=== PATIENT | male | born 1945 | race Caucasian/White ===

== ENCOUNTER 2021-12-04 12:37 | Outpatient (CLI) | payer MEDICARE, SELFPAY ==
--- NOTE | ~2021-12-04 | US_ITS ---
EXAMINATION: US carotid duplex BI DATE: 12/04/2021 13:43 INDICATION: Carotid artery stenosis TECHNIQUE: Grayscale, color Doppler, and pulsed Doppler images of the cervical carotid arteries were obtained. The degree of vessel stenosis is placed in one of the following categories: normal, <50%, 5 0-69%, >=70% but less than near-occlusion, near-occlusion, or total occlusion. Note that percent sten osis relative to normal distal artery lumen diameter is indirectly measured from velocity measurement s as described by Joe, et al. Radiology 2003; 229:340-346. COMPARISON: None. FINDINGS: RIGHT: The right common carotid artery (CCA) peak systolic velocity (PSV) is 97 cm/s. The right internal car otid artery (ICA) PSV is 78 cm/s. The right ICA end-diastolic velocity (EDV) is 22 cm/s. The right IC A/CCA PSV ratio is 0.81. Grayscale and color Doppler images yield an estimate of less than 50% diamet er reduction from plaque in the ICA. The external carotid artery (ECA) PSV is 154 cm/s. There is ante grade flow in the right vertebral artery. LEFT: The left CCA PSV is 69 cm/s. The left ICA PSV is 114 cm/s. The left ICA EDV is 28 cm/s. The left ICA/ CCA PSV ratio is 1.6. Grayscale and color Doppler images yield an estimate of less than 50% diameter reduction from plaque in the ICA. The ECA PSV is 35 cm/s. There is antegrade flow in the left vertebr al artery. IMPRESSION: 1. <50% stenosis in the right internal carotid artery. 2. <50% stenosis in the left internal carotid artery. Reviewed, dictated and finalized at location A.
== END 2021-12-04 12:38 | disposition home or self-care (01) ==
PROVIDERS: Visit Provider Internal Medicine Cardiovascular Disease
DX: I77.9 Disorder of arteries and arterioles, unspecified (principal); I65.23 Occlusion and stenosis of bilateral carotid arteries
CPT/HCPCS: 93880

== ENCOUNTER 2022-01-24 13:46 | Outpatient (CLI) | payer MEDICARE, SELFPAY ==
--- NOTE | ~2022-01-24 | US_ITS ---
EXAMINATION: US art doppler w press LE BI DATE: 01/25/2022 12:39 CDT INDICATION: Medication TECHNIQUE: Segmental pressures and plethysmographic and Doppler waveforms of the brachial and lower e xtremity arteries were obtained. COMPARISON: None. FINDINGS: Right and left brachial artery pressures of 170 mm Hg and 187 mm Hg, respectively, are concordant (no rmal difference <= 30 mmHg). The right high-thigh pressure index is 1.09 (normal > 1.2). The right ankle-brachial index (ANTOINE) is 0 .78 (normal >= 0.9-1.0). The right great toe-brachial index (TBI) is 0.46 (normal >= 0.60). The right lower extremity segmental pressure gradients are diminished below the right knee. (normal gradients <= 20-30 mmHg between adjacent levels on the same leg or the same levels on the two legs). Arterial D oppler waveforms are biphasic. The left high-thigh pressure index is 1.09. The left ANTOINE is 0.71. The left TBI is 0.44. The left lowe r extremity segmental pressure gradients are increased below the left thigh. Arterial Doppler wavefor ms are biphasic. IMPRESSION: 1. Mild-moderate bilateral lower extremity arterial occlusive disease. Reviewed, dictated and finalized at location A.
== END 2022-01-24 13:47 | disposition home or self-care (01) ==
PROVIDERS: PCP Family Medicine; Visit Provider Internal Medicine Cardiovascular Disease
DX: I70.203 Unspecified atherosclerosis of native arteries of extremities, bilateral legs (principal)
CPT/HCPCS: 93923

== ENCOUNTER 2025-04-12 14:29 | Emergency (ER) | payer MEDICARE, SELFPAY ==
[2025-04-12 14:32] VITALS: BP 155/93; PULSE 101; RESP 20; TEMP 36.4; O2SAT 94
--- NOTE | 2025-04-12 14:39 | ED.GENADULT ---
HPI - General Adult General Stated complaint: left foot toe pain Source: patient Mode of arrival: ambulatory Limitations: no limitations History of Present Illness HPI narrative: 79 y/o male with hx dementia, CAD, DM, CVA presented for 2 concerns. Pt c/o left great toe pain, first reported today, and cough x1 week. HPI is obtained from son. Denies any known injury to the left foot. Pt ambulates with a walker, but only occasionally. Denies swelling, bruising, erythema, or wounds. 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 Son says he has history of pneumonia. Denies chest pain, increase in fatigue from baseline, n/v/d/f/c. Related Data Home Medications ?Medication ?Instructions ?Recorded ?Confirmed ?Last Taken ?Type donepezil 5 mg tablet 5 mg PO HS 01/08/24 11/25/24 11/04/24 21:00 History memantine 10 mg tablet 10 mg PO BID 01/08/24 11/25/24 11/05/24 10:05 History rivaroxaban 2.5 mg tablet 2.5 mg PO BID 01/08/24 11/25/24 11/05/24 10:05 History pravastatin 40 mg tablet 40 mg PO DAILY 11/05/24 11/25/24 11/05/24 10:05 History cilostazol 50 mg tablet 50 mg PO BID 11/25/24 11/25/24 Unknown History ezetimibe 10 mg tablet 10 mg PO DAILY 11/25/24 11/25/24 Unknown History amlodipine 10 mg tablet mg 04/12/25 Unknown History carbidopa 25 mg-levodopa 100 mg tablet 04/12/25 Unknown History tablet cetirizine 10 mg tablet mg 04/12/25 Unknown History duloxetine 60 mg capsule,delayed mg PO 04/12/25 Unknown History release losartan 100 mg tablet mg 04/12/25 Unknown History mirabegron 25 mg tablet,extended mg PO 04/12/25 Unknown History release 24 hr Allergies Allergy/AdvReac Type Severity Reaction Status Date / Time amoxicillin Allergy Unknown Unknown Verified 04/12/25 14:39 Edkklqv-GOV-MaP Reductase Allergy Other Verified 04/12/25 14:39 Inhibitor caffeine AdvReac Insomnia Verified 04/12/25 14:39 flu vaccine Allergy Unknown Uncoded 11/25/24 09:01 Review of Systems Review of Systems: CONSTITUTIONAL: Denies body aches, fever, chills, or sweats. EYES: Denies visual changes, redness, or discharge. ENT: Denies rhinorrhea, congestion, sore throat, or otalgia. CARDIOVASCULAR: Denies chest pain, palpitations, or edema. RESPIRATORY: Denies cough denies dyspnea. GASTROINTESTINAL: Denies abdominal pain, nausea, vomiting, or diarrhea. GENITOURINARY: Denies dysuria or hematuria. SKIN: Denies rash, itching, or wounds. MUSCULOSKELETAL: reports left foot pain denies back pain, joint pain, or myalgia. NEUROLOGIC: Denies numbness, tingling, or weakness. All systems reviewed & are unremarkable except as noted in HPI and below PMFSH Past Medical History Medical History Heart attack Arthritis Allergies Hyperlipidemia Constipation MDD (major depressive disorder) Dementia CAD (coronary artery disease) sp stenting Benign hypertension Type 2 diabetes mellitus without complications Surgical History Surgical History History of cervical spinal surgery Family History Family History Sibling Breast cancer Diabetes mellitus Father Heart disease Social History Social History Smoking status: Former smoker Alcohol intake: former Substance use: never Do You Feel Safe in your Home?: No Lack of Transportation: No Lack of Food: Never True Current Housing: I Have Housing Concerned About Future Housing: No Difficulty Paying Gas/Electric Bills: No Difficulty Paying for Meds: No Currently Unemployed: No Education: Bachelor's Degree Difficulty w/ Childcare or Family Care: No Spiritual care concerns: No Comments At time of signature, I have reviewed and agree with nursing past medical, surgical, social and family history unless otherwise noted. Please see nursing chart for further information. There is no relevant family history pertinent to the presenting complaint Exam Narrative: GENERAL: Well-appearing in no acute distress. ENT: Mucous membranes pink and moist. No rhinorrhea. CHEST: No respiratory distress. Clear to auscultation. HEART: Regular rate and rhythm. No murmur appreciated. Normal peripheral pulses. ABDOMEN: Soft, nontender, nondistended, normal active bowel sounds. EXTREMITIES: Normal range of motion. No edema. No wounds to feet. PPP and equal. No swelling, erythema bruising or wounds to feet. SKIN: Warm, dry, no rash. Capillary refill normal. Normal skin turgor. NEURO: No focal deficits. Alert and oriented x2. Son reports he confuses 'yes and no.' Gait steady. Course Course Emergency Course: Patient is aware of diagnosis, understands and agrees to treatment plan. Anticipatory guidance given. Patient agrees to follow-up as directed and is aware of reasons to seek care at the emergency department. Portions of this record may have been created with voice recognition software Level of Care: Express Care Visit Medical Decision Making MDM Narrative Medical decision making narrative: Discussed physical exam findings; offered CXR or left foot xray. Declined imaging. Son says he does not present like he does when he has pneumonia, he will continue to monitor Also has percocet for chronic pain, son will give for pain and if no improvement he has appt with pcp in 2 weeks. Foot without erythema bruising or swelling. No concern for gout or cellulitis. v/u. Advised supportive measures and signs/symptoms to go to the ER. Pt is appropriate for outpt treatment and f/u. Differential Diagnosis Differential Diagnosis: Plantar fasciitis, heel spur, foot strain/sprain, metatarsal fracture, metatarsalgia, cellulitis, gout, sprain, contusion, fracture bronchitis, pneumonia Vital Signs Vital Signs: reviewed Discharge Plan Discharge Clinical Impression: Acute pain of left foot, Cough Patient Disposition: Home Condition: Stable Instructions: Antibiotic Form, Pneumonia (ED) Additional Instructions: For the toe pain: Keep the foot up when at rest Mole skin to the bony areas that may rub on shoes Tylenol as needed You can apply pain cream such as icy hot or biofreeze Monitor the skin follow up with pcp You will continue to monitor for signs of pneumonia Pneumonia is a lung infection that can cause a fever, cough, and trouble breathing. How it spreads: When someone with bacterial pneumonia coughs, sneezes, or talks, they release respiratory droplets into the air that can be inhaled by others.?You can also get pneumonia by touching a contaminated surface or object and then touching your mouth or nose. You're generally contagious for around 48 hours after starting antibiotics and your fever goes away.? To prevent the spread of pneumonia, you can:? ? Get vaccinated? ? Wash your hands often with soap and water for 20 seconds? ? Cover your mouth with a tissue when you cough or sneeze? ? Avoid people who are already sick with pneumonia? ? Stay home when you have pneumonia eat small frequent meals. Get lots of rest and drink fluids. Alternate Tylenol and ibuprofen for pain/fever Alfj-wvu-gpcempl cough medication can cause drowsiness, take according to package directions If you have nasal congestion, you can take Zyrtec, Claritin along with Flonase spray Call your Primary Care Doctor and make a follow-up appointment in 3 days. Go to the ER for worsening symptoms or concerns Patient Language: Estonian Prescriptions: No Action ezetimibe 10 mg tablet 10 mg PO DAILY cilostazol 50 mg tablet 50 mg PO BID donepezil 5 mg Tablet 5 mg PO HS clopidogrel 75 mg Tablet 75 mg PO DAILY bupropion HCl 75 mg Tablet 75 mg PO BID memantine 10 mg Tablet 10 mg PO BID rivaroxaban 2.5 mg Tablet 2.5 mg PO BID duloxetine 30 mg capsule,delayed release(DR/EC) 30 mg PO DAILY pravastatin 40 mg tablet 40 mg PO DAILY oxycodone-acetaminophen 5-325 mg Tablet 1 tablet PO Q6H PRN (Reason: Pain Rated 4-6) Qty: 10 0RF Follow-up/Referrals: Harms,Erlin Mcguire M.D. [Primary Care Provider]
--- OUTSIDE RECORDS SUMMARY | 2025-04-12 17:23 | XMS_ITS | Patient Health Record ---
Author Organization [facility] Address [address] [place] [address] Care Team Providers Care Early Childhood Coordinator Name Role Phone Beverly Limon Unavailable [phone] Reason For Referral No Information Medications Medication SIG (Take, Route, Frequency, Duration) Notes Start Date End Date Status Clopidogrel Bisulfate 75 MG Tablet Oral 09/28/2021 Active amLODIPine Besylate 5 MG Tablet Oral 09/29/19 22 Active amLODIPine Besylate 10 MG Tablet Oral 09/28/2021 Active hydroCHLOROthiazide 12.5 MG Capsule Oral 09/28/2021 Active Finasteride 5 MG Tablet Oral 09/28/2021 Active Pravastatin Sodium 80 MG Tablet Oral 09/29/19 22 Active Metoprolol Succinate ER 25 M G Tablet Extended Release 24 Hour Oral 09/28/2021 Active Jardiance 25 MG Tablet Oral 09/28/2021 Active Ezetimibe 10 MG Tablet Oral 09/28/2021 Active metFORMIN HCl 1000 MG Tablet Oral 09/28/2021 Active Stool Softener 100 MG Capsule Oral 09/28/2021 Active Tamsulosin HCl 0.4 MG Capsule Oral 09/28/2021 Active FLUoxetine HCl 20 MG Capsule Oral 09/28/2021 Active buPROPion HCl ER (XL) 150 MG Tablet Extended Release 24 Hour Oral 09/28/2021 Active HYDROcodone-Acetaminophen 5- 325 MG Tablet Oral 09/28/2021 Active Social History Social History Additional Details Category Social Info Options Details Migrated Social History Migrated Social History Alcohol Intake: None 09/28/2021,Tobacco Years: Former smoker 09/28/2021 Plan Of Treatment No Information Insurance Providers Payer Name Payer Address Payer Phone Subscriber Number Group Number Insured Name Patient Relationship to Insured Coverage Start Date Coverage End Date [employer] Medicare Replacement/ Advantage - Ppo [address] [address] [place] [phone] [id number] SAMANTHA LUQUE Self - patient is the insured Medical (General) History Surgical History Surgery Date(Month/Year) Cardiac stent
--- OUTSIDE RECORDS SUMMARY | 2025-04-12 17:23 | XMS_ITS | Clinical Summary ---
Author Organization [facility] Address [address] [place] [address] Care Team Providers Care Appraiser Personal Property Name Role Phone Erlin Singh MD Primary Care Provider [phone] Source Comments [facility],non-owned Affiliates and Associated Physician Practices is amultiple site organization consisting of ambulatory clinics and hospital sitesin [place] and [place]. This disclosure is being madepursuant to the Care Everywhere program and may not contain all information available regarding this patient. Last updated 18.[facility] Allergies Active Allergy Reactions Criticality Noted Date Comments Atorvastatin Shortness of Breath High Reaction: Bronchospasm, , Reaction: Bronchospasm, , Caffeine Unknown Low 12/23/2019 Hmg-Coa-R Inhibitors Other Low 02/21/2023 Reaction: Joint Pain, , , Reaction: Joint Pain, , Influenza Virus Vacc Other Medium 04/19/2019 Confusion Simvastatin Unknown Medium Medications * Be aware that medications may not be up to date on this document. Alwaysverify current medications with the patient. alirocumab (PRALUENT) 75 MG/ML injection Inject 75 (seventy five) mg subcutaneously 8 Active Blood Glucose Monitoring Suppl (BLOOD GLUCOSE MONITOR SYSTEM) W/DEVICE KIT Monitor BS daily. (one touch ultra 2) 8 Active Coenzyme Q10 (CO Q 10 PO) 50 mg 3 Active ezetimibe (ZETIA) 10 MG tablet Take 1 (one) tablet by mouth once daily 3 8 Active memantine (NAMENDA) 10 MG tablet Take 1 (one) tablet by mouth once daily 9 Active metFORMIN (GLUCOPHAGE) 1000 MG tablet Take 1 (one) tablet by mouth 2 times daily 9 Active pravastatin (PRAVACHOL) 80 MG tablet Take 1 (one) tablet by mouth once daily 2 9 Active PROAIR HFA 108 (90 BASE) MCG/ACT inhaler INL 2 PFS PO Q 4 H PRF WHZ OR SOB 11 9 Active Spacer/Aero-Ho lding Chambers (VALVED HOLDING CHAMBER) VALENTINO USE Q 4 H PRN WITH ALBUTEROL INHALER 0 9 Active buPROPion XL 24hr (Wellbutrin-XL ) 150 MG tablet 3 Active cilostazol (Pletal) 50 MG tablet 3 Active Jardiance 25 MG tablet 3 Active hydroCHLOROthi azide (Microzide) 12.5 MG capsule 3 Active hydrocortisone (Hytone) 2.5 % cream 3 Active ketorolac (Acular) 0.5 % ophthalmic solution 3 Active meloxicam (Mobic) 15 MG tablet 3 Active metoprolol succinate XL 24hr (Toprol XL) 25 MG tablet 3 Active montelukast (Singulair) 10 MG tablet 3 Active ofloxacin (Ocuflox) 0.3 % ophthalmic solution 3 Active trimethoprim-p olymyxin B (Polytrim) 23139-6.1 UNIT/ML-% ophthalmic solution INSTILL 2 DROPS IN LEFT EYE FOUR TIMES DAILY 3 Active Xarelto 2.5 MG TABS tablet 3 Active sertraline (Zoloft) 100 MG tablet 3 Active clopidogrel (plaVIX) 75 MG tablet Take 1 (one) tablet by mouth once daily Active buPROPion (Wellbutrin) 75 MG tablet 4 Active sertraline (Zoloft) 50 MG tablet 4 Active empagliflozin (Jardiance) 25 MG tablet Take 1 (one) tablet by mouth once daily 4 Active nepafenac (Nevanac) 0.1 % ophth suspension Instill 1 drop into left eye 4 times daily 4 Active prednisoLONE acetate (Pred Forte) 1 % ophthalmic suspension Instill 1 (one) drop into left eye 4 times daily 4 Active moxifloxacin (Vigamox) 0.5 % ophthalmic solution Instill 1 (one) drop into left eye 4 times daily 4 Active traMADol (Ultram) 50 MG tablet 4 Active amantadine (Symmetrel) 100 MG capsule 4 Active Active Problems Problem Noted Date Diagnosed Date Carotid stenosis, right 11/06/2018 Family History Medical History Relation Name Comments CAD (Coronary Artery Disease) Father Other Mother ovarian cancer Cancer - Breast Sister Diabetes - Type 2 Sister Relation Name Status Comments Father Mother Alive Sister Alive Social History Tobacco Use Types Packs/Day Years Used Date Smoking Tobacco: Former Cigarettes Q uit: 2010 Smokeless Tobacco: Never Tobacco Cessation:Counseling Given: Not Answered Alcohol Use Standard Drinks/Week Comments Not Currently 0 (1 standard drink = 0.6 oz pur e alcohol) Sex and Gender Information Value Date Recorded Sex Assigned at Not on file Legal Sex Male 3:31 PM CDT Gender Identity Not on file Sexual Orientation Not on file Last Filed Vital Signs Vital Sign Reading Time Taken Comments Blood Pressure 108/70 09/17/2023 8:25 AM DATA DELIVERABLES MANAGER Pulse 86 09/17/2023 8:25 AM DATA DELIVERABLES MANAGER Temperature 36.5 C (97.7 F) 09/17/2023 8:15 AM DATA DELIVERABLES MANAGER Respiratory Rate 18 09/17/2023 8:25 AM DATA DELIVERABLES MANAGER Oxygen Saturation 95% 09/17/2023 8:25 AM DATA DELIVERABLES MANAGER Inhaled Oxygen Concentration - - Weight 83.8 kg (184 lb 12.8 oz) 09/17/2023 6:40 AM DATA DELIVERABLES MANAGER Height 180.3 cm (5' 11) 09/17/2023 6:40 AM DATA DELIVERABLES MANAGER Body Mass Index 25.77 09/17/2023 6:40 AM DATA DELIVERABLES MANAGER Plan of Treatment Health Maintenance Due Date Last Done Comments DTAP/TDAP/TD VACCINES (1 - Tdap) 1963 PNEUMOCOCCAL VACCINE 50+ (1 of 1 - PCV) 1994 ZOSTER VACCINE (1 of 2) 1994 Respiratory Syncytial Virus (RSV) Vaccine Pt: or over 60 yrs (1 - 1-dose 75+ series) 2019 DEPRESSION SCREENING 07/29/2024 MEDICARE AWV CALENDAR YEAR 2024 COVID-19 VACCINE (2024-2 6 season) 2025 06/09/2021, 11/16/2020, 10/19/2020 HEPATITIS B VACCINE Aged Out No longe r eligible based on patient's age to complete this topic HIB VACCINE Aged Out No longer eligi ble based on patient's age to complete this topic HPV VACCINE Aged Out No longer eligi ble based on patient's age to complete this topic MENINGOCOCCAL (Group B) VACCINE SHARED DECISION-MAKING Aged Out No longer eligible based on patient's age to complete this topic MENINGOCOCCAL GROUPS A/C/Y/W VACCINE Aged Out No longer eligible b ased on patient's age to complete this topic Medical Devices Implanted Type Area Senior Marketing Coordinator Device Identifier Shelf Expiration Date Model / Serial / Lot Patch Mesh Dbl Cliff Hemshld 2.5mm X 7.5cm - [id number] Implanted:Qty: 1 on 11/06/2018 by Michele Sun MD at [facility] Right: Carotid Maquet 12/26/2022 [id number] / [id number] / [id number] [id number]-Ptj-27.5 d Implanted:Qty: 1 on 07/30/2023 by Brent Garcia MD at [facility] Right: Eye [employer] 08/19/2024 [id number] / [id number] / 00 Description:[id number] EXP 08-19-2024 Ffzjau-Euc-21.5 d Implanted:Qty: 1 on 09/17/2023 by Brent Garcia MD at [facility] Left: Eye [employer] 04/07/2026 [id number] / [id number] / 00 Explanted Type Area Senior Marketing Coordinator Device Identifier Shelf Expiration Date Model / Serial / Lot Shunt Cv 31cm 9fr P-I Crtd Outlying F3 Explanted:Qty: 1 on 11/06/2018 by Michele Sun MD at [facility] Right: Carotid [employer] 08/25/2022 [id number] / / [id number] Insurance [employer] MEDICARE ADV Advance Directives * Full Code (Latest Code Status on File) Date Activated Date Inactivated Comments 11/06/2018 6:07 PM 11/07/2018 3:50 PM Care Teams Appraiser Personal Property Relationship Specialty Start Date End Date Erlin Singh MD [address] [place] [address] PCP - General Internal Medicine 08/07/23
--- OUTSIDE RECORDS SUMMARY | 2025-04-12 17:23 | XMS_ITS | Clinical Summary ---
Author Organization [facility] Address [address] [place] [address] Care Team Providers Care Internal Combustion Engine Assembler Name Role Phone Princess Dixon RN Unavailable Sabine Tarun Marley MD Unavailable Virginie Hansen MD Unavailable Xavier Mayer MD Unavailable [phone] Xavier Joel MD Unavailable [phone] Genaro Galan MD Unavailable Erlin Singh MD Primary Care Provider [phone] Ceci Guardado RN Unavailable [phone] Anette Newby NP Unavailable [phone] Corrina Brush LCSW Unavailable Unavaila ble Allergies Active Allergy Reactions Criticality Noted Date Comments Amoxicillin Vomiting Low 01/04/2025 Atorvastatin Shortness of breath High Reaction: Bronchospasm, , Reaction: Bronchospasm, , Caffeine Unknown Low 12/23/2019 Doxycycline Vomiting High 02/14/2024 Haemophilus Influenzae Type B Unknown 10/21/2024 Influenza Virus Vaccines Other (See comments),Chills Medium 04/19/2019 Confusion Simvastatin Unknown Medium Takdcmz-Pqu-Smb Reductase Inhibitors Joint pain Low Reaction: Joint Pain, , , Reaction: Joint Pain, , Sulfa (Sulfonamide Antibiotics) Unknown 02/14/2024 Medications buPROPion SR (ZYBAN) 150 mg 12 hr tablet Take 1 tablet (150 mg total) by mouth 2 (two) times a day 180 tablet 05/19/[address] (CYMBALTA) 30 mg capsuleIndicati ons:Anxiety with Depression,Neur opathic Pain Take 1 capsule (30 mg total) by mouth daily 30 capsule 06/10/20 25 Active Additional Information Patient taking differently: 60 mgoral Daily, Indications: Anxiety with Depression, Neuropathic Pain, Reported on 02/26/2025 acetaminophen 500 mg capsuleIndicati ons:Pain Take 2 capsules (1,000 mg total) by mouth 3 (three) times a day Active Additional Information Patient taking differently:1,000 mg oral3 times daily PRN, Indications: Pain, Reported on 02/26/2025 cilostazoL (PLETAL) 50 mg tablet TAKE 1 TABLET(50 MG) BY MOUTH TWICE DAILY 60 tablet 5 Active ezetimibe (ZETIA) 10 mg tablet TAKE 1 TABLET(10 MG) BY MOUTH DAILY 90 tablet 1 5 Active rivaroxaban (Xarelto) 2.5 mg tablet TAKE 1 TABLET(2.5 MG) BY MOUTH TWICE DAILY 60 tablet 5 Active flash glucose sensor (FreeStyle Galina 2 Sensor) kit FreeStyle Galina 2 Sensor use for 14 days to monitor blood sugar. 2 kit 5 Active memantine (NAMENDA) 10 mg tablet TAKE 1 TABLET BY MOUTH TWICE DAILY 180 tablet 1 5 Active ascorbic acid (vitamin C) 1,000 mg tablet Take 1 tablet (1,000 mg total) by mouth daily Active glucose 4 gram chewable tablet Take 4 tablets (16 g total) by mouth as needed for low blood sugar 50 tablet 12 5 01/02/20 26 Active cetirizine (ZyrTEC) 10 mg tablet Take 1 tablet (10 mg total) by mouth daily as needed for allergies 90 tablet 4 5 01/02/20 26 Active hyaluronate sodium, stabilized (DUROLANE) 60 mg/3 mL syringeIndicati ons:Osteoarthri tis of the Knee Inject bilateral knees once 6 mL 5 Active amLODIPine (NORVASC) 10 mg tablet Take 1 tablet (10 mg total) by mouth daily 90 tablet 4 5 01/16/20 26 Active glipiZIDE (GLUCOTROL) 2.5 mg tabletIndicatio ns:type 2 diabetes mellitus Take 1 tablet (2.5 mg total) by mouth 2 (two) times a day before breakfast and lunch Do not take if premeal sugar below 175 60 tablet 1 5 Active hyaluronate sodium, cross-linked (GEL-ONE) 30 mg/3 mL syringeIndicati ons:Osteoarthri tis of the Knee Inject bilateral knees once 6 mL 5 Active losartan (COZAAR) 100 mg tablet Take 1 tablet (100 mg total) by mouth daily 90 tablet 4 5 01/20/20 26 Active pravastatin (PRAVACHOL) 40 mg tablet TAKE 1 TABLET(40 MG) BY MOUTH DAILY 90 tablet 5 Active donepeziL (ARICEPT) 10 mg tablet Take 1 tablet (10 mg total) by mouth nightly 30 tablet 3 5 Active cholecalciferol (VITAMIN D-3) 2000 unit capsule Take 1 capsule (2,000 Units total) by mouth daily 30 capsule 11 5 Active hylan g-f 20 (SYNVISC-ONE) 48 mg/6 mL syringeIndicati ons:Osteoarthri tis of the Knee Inject bilateral knees once 12 mL 5 Active carbidopa-levod opa (SINEMET) 25-100 mg per tabletIndicatio ns:Parkinsonism Take 1 tablet by mouth 3 (three) times a day Take atleast 30 minutes before meals 90 tablet 6 5 02/17/20 26 Active oxyCODONE-aceta minophen (PERCOCET) 5-325 mg per tabletIndicatio ns:Pain Take 1 tablet by mouth 3 (three) times a day as needed for pain 90 tablet 5 05/04/20 25 Active oxyCODONE-aceta minophen (PERCOCET) 5-325 mg per tabletIndicatio ns:Pain Take 1 tablet by mouth 3 (three) times a day as needed for pain 90 tablet 5 06/03/20 25 Active oxyCODONE-aceta minophen (PERCOCET) 5-325 mg per tabletIndicatio ns:Pain Take 1 tablet by mouth 3 (three) times a day as needed for pain 90 tablet 5 04/04/20 25 Active Problems Problem Noted Date Diagnosed Date Diabetes mellitus with hyperglycemia 01/12/2025 History of CVA with residual deficit 01/12/2025 Hypernatremia 01/12/2025 Hypotension after procedure 01/12/2025 Change in consistency of stool 07/09/2024 Assessment & Plan (07/09/2024 10:41 AM LIMITED RADIOLOGY TECHNICIAN): Reports diarrhea once every 1-2 weeks for the past few years per son. Typically has bowel movement once per week, loose. No changes in appetite. Discussed concerns for underlying constipation contributing to liquid stools as patient will routinely go 7-10 days without BM. Suggested use of miralax. Referral to GI placed. Last c-scope 2019. Repeated falls 07/09/2024 Dorsalgia, unspecified 07/09/2024 Recurrent falls 06/12/2024 Assessment & Plan (07/14/2024 3:35 PM LIMITED RADIOLOGY TECHNICIAN): See discussion above Assessment & Plan (06/29/2024 4:03 PM LIMITED RADIOLOGY TECHNICIAN): -has been ongoing for a while, with possible progressive weakness of LEs -he was seen by spine surgery in 03/2024 for right-sided weakness after his spine surgery in November. There was concern that he has C5 palsy on the right side. Per the note: Regarding the right leg that is dragging as per the son, I do not have a clear explanation just yet. It is possible that the previous stroke is playing a role into this or a potential lumbar issues. Similarly, regarding his symptoms of bowel/bladder, I wonder if the anesthetic medication could have worsened his frontal lobe dementia based on previous records that I am analyzing here. However, we would like to see an MRI of his cervical, thoracic, and lumbar spine to assess any potential compression on either his conus medullaris, his cauda equina, or his upper thoracic cord. Plan: -whole spine MRI and brain MRI revealed : No acute intracranial findings. Multilevel degenerative changes throughout the spine. No high-grade spinal canal stenosis in the cervical or thoracic spine. Up to moderate spinal canal stenosis involving L3-L4 and L4-L5. Unchanged T12 compression fracture -Spine surgery (Dr. Mikayla Pelletier)/neurology (Dr. Mike Montanez). Dr. Pelletier thinks his RSW and Right leg dragging could be explained by some foraminal stenosis in lumbar spine, worse on the right. I would be hesitant offering anything surgical right now based on his functional status/failure to thrive. -Discussed with Dr. Pelletier 06/17 who saw the patient 06/19 and discuss further options with son/patient. Per Neurosurgery patient could have had an acute C5 palsy post-op which is a described complication of a posterior decompression and fusion in the cervical spine. Unfortunately, when this develops, the recovery can take up to 6 months to 1 year to obtain a new baseline or to be back to baseline. As per note 'Regarding the right leg that is dragging as per the son, he could have neurogenic claudication based on his MRI findings, but I would be reluctant to categorize these episodes as such without more details and knowing that he drags his right leg'. Recommended EMG/NCS outpatient bilateral UE and LE. Referral to neurologist specialist in dementia (patient already has a neurologist, will follow up outpatient). Referral to IR for possible kyphoplasty of T12 compression fracture leading to pain. [facility] consulted, plan to consider kyphoplasty as outpatient (explained rationale for deferral as communicated by [facility] to me to son, who seemed to have some difficulty understanding or accepting this). -vitamin B12 = 421; started supplementation -Will avoid opiates which could worsen functional status -PT/OT: IPR (though deemed not IPR candidate by insurance, so son chooses to take home). Plan home health referral. Assessment & Plan (06/27/2024 5:03 PM LIMITED RADIOLOGY TECHNICIAN): -has been ongoing for a while, with possible progressive weakness of LEs -he was seen by spine surgery in 03/2024 for right-sided weakness after his spine surgery in November. There was concern that he has C5 palsy on the right side. Per the note: Regarding the right leg that is dragging as per the son, I do not have a clear explanation just yet. It is possible that the previous stroke is playing a role into this or a potential lumbar issues. Similarly, regarding his symptoms of bowel/bladder, I wonder if the anesthetic medication could have worsened his frontal lobe dementia based on previous records that I am analyzing here. However, we would like to see an MRI of his cervical, thoracic, and lumbar spine to assess any potential compression on either his conus medullaris, his cauda equina, or his upper thoracic cord. Plan: -whole spine MRI and brain MRI revealed : No acute intracranial findings. Multilevel degenerative changes throughout the spine. No high-grade spinal canal stenosis in the cervical or thoracic spine. Up to moderate spinal canal stenosis involving L3-L4 and L4-L5. Unchanged T12 compression fracture -Spine surgery (Dr. Mikayla Pelletier)/neurology (Dr. Mike Montanez). Dr. Pelletier thinks his RSW and Right leg dragging could be explained by some foraminal stenosis in lumbar spine, worse on the right. I would be hesitant offering anything surgical right now based on his functional status/failure to thrive. -Discussed with Dr. Pelletier 06/17 who saw the patient 06/19 and discuss further options with son/patient. Per Neurosurgery patient could have had an acute C5 palsy post-op which is a described complication of a posterior decompression and fusion in the cervical spine. Unfortunately, when this develops, the recovery can take up to 6 months to 1 year to obtain a new baseline or to be back to baseline. As per note 'Regarding the right leg that is dragging as per the son, he could have neurogenic claudication based on his MRI findings, but I would be reluctant to categorize these episodes as such without more details and knowing that he drags his right leg'. Recommended EMG/NCS outpatient bilateral UE and LE. Referral to neurologist specialist in dementia (patient already has a neurologist, will follow up outpatient). Referral to IR for possible kyphoplasty of T12 compression fracture leading to pain. [facility] consulted, plan to consider kyphoplasty as outpatient (explained rationale for deferral as communicated by [facility] to me to son, who seemed to have some difficulty understanding or accepting this). -vitamin B12 = 421; started supplementation -Will avoid opiates which could worsen functional status -PT/OT: IPR Assessment & Plan (06/26/2024 6:43 PM LIMITED RADIOLOGY TECHNICIAN): -has been ongoing for a while, with possible progressive weakness of LEs -he was seen by spine surgery in 03/2024 for right-sided weakness after his spine surgery in November. There was concern that he has C5 palsy on the right side. Per the note: Regarding the right leg that is dragging as per the son, I do not have a clear explanation just yet. It is possible that the previous stroke is playing a role into this or a potential lumbar issues. Similarly, regarding his symptoms of bowel/bladder, I wonder if the anesthetic medication could have worsened his frontal lobe dementia based on previous records that I am analyzing here. However, we would like to see an MRI of his cervical, thoracic, and lumbar spine to assess any potential compression on either his conus medullaris, his cauda equina, or his upper thoracic cord. Plan: -whole spine MRI and brain MRI revealed : No acute intracranial findings. Multilevel degenerative changes throughout the spine. No high-grade spinal canal stenosis in the cervical or thoracic spine. Up to moderate spinal canal stenosis involving L3-L4 and L4-L5. Unchanged T12 compression fracture -Spine surgery (Dr. Mikayla Pelletier)/neurology (Dr. Mike Montanez). Dr. Pelletier thinks his RSW and Right leg dragging could be explained by some foraminal stenosis in lumbar spine, worse on the right. I would be hesitant offering anything surgical right now based on his functional status/failure to thrive. -Discussed with Dr. Pelletier 06/17 who saw the patient 06/19 and discuss further options with son/patient. Per Neurosurgery patient could have had an acute C5 palsy post-op which is a described complication of a posterior decompression and fusion in the cervical spine. Unfortunately, when this develops, the recovery can take up to 6 months to 1 year to obtain a new baseline or to be back to baseline. As per note 'Regarding the right leg that is dragging as per the son, he could have neurogenic claudication based on his MRI findings, but I would be reluctant to categorize these episodes as such without more details and knowing that he drags his right leg'. Recommended EMG/NCS outpatient bilateral UE and LE. Referral to neurologist specialist in dementia (patient already has a neurologist, will follow up outpatient). Referral to IR for possible kyphoplasty of T12 compression fracture leading to pain. [facility] consulted, plan to consider kyphoplasty as outpatient (explained rationale for deferral as communicated by [facility] to me to son, who seemed to have some difficulty understanding or accepting this). -vitamin B12 = 421; started supplementation -Will avoid opiates which could worsen functional status -PT/OT: IPR Assessment & Plan (06/25/2024 6:47 PM LIMITED RADIOLOGY TECHNICIAN): -has been ongoing for a while, with possible progressive weakness of LEs -he was seen by spine surgery in 03/2024 for right-sided weakness after his spine surgery in November. There was concern that he has C5 palsy on the right side. Per the note: Regarding the right leg that is dragging as per the son, I do not have a clear explanation just yet. It is possible that the previous stroke is playing a role into this or a potential lumbar issues. Similarly, regarding his symptoms of bowel/bladder, I wonder if the anesthetic medication could have worsened his frontal lobe dementia based on previous records that I am analyzing here. However, we would like to see an MRI of his cervical, thoracic, and lumbar spine to assess any potential compression on either his conus medullaris, his cauda equina, or his upper thoracic cord. Plan: -whole spine MRI and brain MRI revealed : No acute intracranial findings. Multilevel degenerative changes throughout the spine. No high-grade spinal canal stenosis in the cervical or thoracic spine. Up to moderate spinal canal stenosis involving L3-L4 and L4-L5. Unchanged T12 compression fracture -Spine surgery (Dr. Mikayla Pelletier)/neurology (Dr. Mike Montanez). Dr. Pelletier thinks his RSW and Right leg dragging could be explained by some foraminal stenosis in lumbar spine, worse on the right. I would be hesitant offering anything surgical right now based on his functional status/failure to thrive. -Discussed with Dr. Pelletier 06/17 who saw the patient 06/19 and discuss further options with son/patient. Per Neurosurgery patient could have had an acute C5 palsy post-op which is a described complication of a posterior decompression and fusion in the cervical spine. Unfortunately, when this develops, the recovery can take up to 6 months to 1 year to obtain a new baseline or to be back to baseline. As per note 'Regarding the right leg that is dragging as per the son, he could have neurogenic claudication based on his MRI findings, but I would be reluctant to categorize these episodes as such without more details and knowing that he drags his right leg'. Recommended EMG/NCS outpatient bilateral UE and LE. Referral to neurologist specialist in dementia (patient already has a neurologist, will follow up outpatient). Referral to IR for possible kyphoplasty of T12 compression fracture leading to pain. [facility] consulted, plan to consider kyphoplasty as outpatient (explained rationale for deferral as communicated by [facility] to me to son yesterday, who seemed to have some difficulty understanding or accepting this). -vitamin B12 = 421; started supplementation -Will avoid opiates which could worsen functional status -PT/OT: IPR Assessment & Plan (06/25/2024 9:17 AM LIMITED RADIOLOGY TECHNICIAN): -has been ongoing for a while, with possible progressive weakness of LEs -he was seen by spine surgery in 03/2024 for right-sided weakness after his spine surgery in November. There was concern that he has C5 palsy on the right side. Per the note: Regarding the right leg that is dragging as per the son, I do not have a clear explanation just yet. It is possible that the previous stroke is playing a role into this or a potential lumbar issues. Similarly, regarding his symptoms of bowel/bladder, I wonder if the anesthetic medication could have worsened his frontal lobe dementia based on previous records that I am analyzing here. However, we would like to see an MRI of his cervical, thoracic, and lumbar spine to assess any potential compression on either his conus medullaris, his cauda equina, or his upper thoracic cord. Plan: -whole spine MRI and brain MRI revealed : No acute intracranial findings. Multilevel degenerative changes throughout the spine. No high-grade spinal canal stenosis in the cervical or thoracic spine. Up to moderate spinal canal stenosis involving L3-L4 and L4-L5. Unchanged T12 compression fracture -Spine surgery (Dr. Mikayla Pelletier)/neurology (Dr. Mike Montanez). Dr. Pelletier thinks his RSW and Right leg dragging could be explained by some foraminal stenosis in lumbar spine, worse on the right. I would be hesitant offering anything surgical right now based on his functional status/failure to thrive. -Discussed with Dr. Pelletier 06/17 who saw the patient 06/19 and discuss further options with son/patient. Per Neurosurgery patient could have had an acute C5 palsy post-op which is a described complication of a posterior decompression and fusion in the cervical spine. Unfortunately, when this develops, the recovery can take up to 6 months to 1 year to obtain a new baseline or to be back to baseline. As per note 'Regarding the right leg that is dragging as per the son, he could have neurogenic claudication based on his MRI findings, but I would be reluctant to categorize these episodes as such without more details and knowing that he drags his right leg'. Recommended EMG/NCS outpatient bilateral UE and LE. Referral to neurologist specialist in dementia (patient already has a neurologist, will follow up outpatient). Referral to IR for possible kyphoplasty of T12 compression fracture leading to pain. [facility] consulted, plan to consider kyphoplasty as outpatient (explained rationale for deferral as communicated by [facility] to me to son, who seemed to have some difficulty understanding or accepting this). -vitamin B12 = 421; started supplementation -Will avoid opiates which could worsen functional status -PT/OT: IPR Assessment & Plan (06/24/2024 8:40 AM LIMITED RADIOLOGY TECHNICIAN): -has been ongoing for a while, with possible progressive weakness of LEs -he was seen by spine surgery in 03/2024 for right-sided weakness after his spine surgery in November. There was concern that he has C5 palsy on the right side. Per the note: Regarding the right leg that is dragging as per the son, I do not have a clear explanation just yet. It is possible that the previous stroke is playing a role into this or a potential lumbar issues. Similarly, regarding his symptoms of bowel/bladder, I wonder if the anesthetic medication could have worsened his frontal lobe dementia based on previous records that I am analyzing here. However, we would like to see an MRI of his cervical, thoracic, and lumbar spine to assess any potential compression on either his conus medullaris, his cauda equina, or his upper thoracic cord. Plan: -whole spine MRI and brain MRI revealed : No acute intracranial findings. Multilevel degenerative changes throughout the spine. No high-grade spinal canal stenosis in the cervical or thoracic spine. Up to moderate spinal canal stenosis involving L3-L4 and L4-L5. Unchanged T12 compression fracture -Spine surgery (Dr. Mikayla Pelletier)/neurology (Dr. Mike Montanez). Dr. Pelletier thinks his RSW and Right leg dragging could be explained by some foraminal stenosis in lumbar spine, worse on the right. I would be hesitant offering anything surgical right now based on his functional status/failure to thrive. -Discussed with Dr. Pelletier 06/17 who saw the patient 06/19 and discuss further options with son/patient. Per Neurosurgery patient could have had an acute C5 palsy post-op which is a described complication of a posterior decompression and fusion in the cervical spine. Unfortunately, when this develops, the recovery can take up to 6 months to 1 year to obtain a new baseline or to be back to baseline. As per note 'Regarding the right leg that is dragging as per the son, he could have neurogenic claudication based on his MRI findings, but I would be reluctant to categorize these episodes as such without more details and knowing that he drags his right leg'. Recommended EMG/NCS outpatient bilateral UE and LE. Referral to neurologist specialist in dementia (patient already has a neurologist, will follow up outpatient). Referral to IR for possible kyphoplasty of T12 compression fracture leading to pain. [facility] consulted, plan to do kyphoplasty (after 5 days hold of blood thinners/anticoagulation) likely 06/26 (though handoff lists this as declined; will need to clarify). -vitamin B12 = 421; started supplementation -Will avoid opiates which could worsen functional status -PT/OT: IPR HTN (hypertension) 06/12/2024 Assessment & Plan (12/03/2024 3:52 PM CDT): Impression: Chronic stable. Plan: Continue amlodipine Assessment & Plan (06/29/2024 4:03 PM LIMITED RADIOLOGY TECHNICIAN): Intermittently elevated earlier in stay. Have switched from carvedilol (beta blockers not first-line anyway) to amlodipine 10 mg daily; seems improved following. HCTZ held due to recent notation of ELDON (since resolved). Assessment & Plan (06/28/2024 4:29 PM LIMITED RADIOLOGY TECHNICIAN): Intermittently elevated earlier in stay. Have switched from carvedilol (beta blockers not first-line anyway) to amlodipine 10 mg daily; seems improved following. HCTZ held due to recent notation of ELDON (since resolved); might also explain mild hypercalcemia. Assessment & Plan (06/27/2024 5:03 PM LIMITED RADIOLOGY TECHNICIAN): Intermittently elevated earlier in stay. Have switched from carvedilol (beta blockers not first-line anyway) to amlodipine 10 mg daily; seems improved following. HCTZ held due to recent notation of ELDON (since resolved). Assessment & Plan (06/26/2024 6:44 PM LIMITED RADIOLOGY TECHNICIAN): Intermittently elevated earlier in stay. Have switched from carvedilol (beta blockers not first-line anyway) to amlodipine 10 mg daily; seems improved following. Continue HCTZ. Assessment & Plan (06/25/2024 6:48 PM LIMITED RADIOLOGY TECHNICIAN): Intermittently elevated. Have switched from carvedilol (beta blockers not first- line anyway) to amlodipine 10 mg daily. Continue HCTZ. Assessment & Plan (06/25/2024 9:19 AM LIMITED RADIOLOGY TECHNICIAN): Uncontrolled. Have switched from carvedilol (beta blockers not first-line anyway) to amlodipine 10 mg daily. Continue HCTZ. Assessment & Plan (06/24/2024 8:39 AM LIMITED RADIOLOGY TECHNICIAN): Uncontrolled; not clear that current regimen adequate. Will likely need to adjust in next day or two if elevated BP persists. CAD (coronary artery disease) 06/12/2024 Assessment & Plan (06/29/2024 4:05 PM LIMITED RADIOLOGY TECHNICIAN): -CAD s/p stenting -continue statin, clopidogrel Assessment & Plan (06/28/2024 4:29 PM LIMITED RADIOLOGY TECHNICIAN): -CAD s/p stenting -continue statin Note that clopidogrel was resumed, which would be expected to preclude kyphoplasty, at least for this week. Plan confirmed with [facility] last week and son notified of change in plans. Assessment & Plan (06/27/2024 5:03 PM LIMITED RADIOLOGY TECHNICIAN): -CAD s/p stenting -continue statin Note that clopidogrel was resumed, which would be expected to preclude kyphoplasty, at least for this week. Plan confirmed with [facility] earlier in week. Assessment & Plan (06/26/2024 6:44 PM LIMITED RADIOLOGY TECHNICIAN): -CAD s/p stenting -continue statin Note that clopidogrel was resumed, which would be expected to preclude kyphoplasty, at least for this week. Plan confirmed with [facility] earlier in week; see above. Assessment & Plan (06/25/2024 6:49 PM LIMITED RADIOLOGY TECHNICIAN): -CAD s/p stenting -continue statin Note that clopidogrel was resumed, which would be expected to preclude kyphoplasty, at least for this week. Plan confirmed with [facility]; see above. Assessment & Plan (06/25/2024 9:19 AM LIMITED RADIOLOGY TECHNICIAN): -CAD s/p stenting -continue statin Note that clopidogrel was resumed (?never held?), which would be expected to preclude kyphoplasty. Plan (see above) confirmed with [facility]. Assessment & Plan (06/24/2024 8:45 AM LIMITED RADIOLOGY TECHNICIAN): -CAD s/p stenting -continue statin Note that clopidogrel was resumed (?never held?), which would be expected to preclude kyphoplasty. Polypharmacy 06/12/2024 Assessment & Plan (07/14/2024 3:33 PM LIMITED RADIOLOGY TECHNICIAN): Reviewed updated medication list with patient and son. I, Rubina Rao NP have personally reviewed pertinent inpatient and/or ED records, including discharge medications and Cl[facility]esk if applicable. This patient's discharge medication list has been reviewed and reconciled with his outpatient medication list and has also been reviewed with patient and/or caregiver. I have noted any changes. Assessment & Plan (06/29/2024 4:06 PM LIMITED RADIOLOGY TECHNICIAN): -patient is on Wellbutrin, Zoloft, mirtazapine, and multiple other medications. Neurology are in agreement that the patient will benefit from reduction of his medications to prevent polypharmacy which could be contributing to his cognitive difficulties. -Final recs from Neurology 06/10: - Stop Ezetimibe (Zetia) (LDL 30 and also on Pravastatin); Stopped - Decrease mirtazapine (REMERON) to 7.5mg DAILY for 4 weeks then stop mirtazapine, stopped. - Decrease amantadine (SYMMETREL) to 100mg DAILY for 1 week then stop amantadine 06/17/2024, stopped. - Decrease sertraline (ZOLOFT) to 75mg DAILY for 4 weeks THEN Decrease sertraline (ZOLOFT) to 50mg DAILY for 4 weeks THEN Decrease sertraline (ZOLOFT) to 25mg DAILY for 4 weeks THEN STOP SERTRALINE (ZOLOFT) - Start duloxetine 30mg DAILY and follow-up with Dr. Montanez in 2 -4 weeks to discuss increasing his medications; started. Assessment & Plan (06/28/2024 4:30 PM LIMITED RADIOLOGY TECHNICIAN): -patient is on Wellbutrin, Zoloft, mirtazapine, and multiple other medications. Neurology are in agreement that the patient will benefit from reduction of his medications to prevent polypharmacy which could be contributing to his cognitive difficulties. -Final recs from Neurology 06/10: - Stop Ezetimibe (Zetia) (LDL 30 and also on Pravastatin); Stopped - Decrease mirtazapine (REMERON) to 7.5mg DAILY for 4 weeks then stop mirtazapine, stopped. - Decrease amantadine (SYMMETREL) to 100mg DAILY for 1 week then stop amantadine 06/17/2024, stopped. - Decrease sertraline (ZOLOFT) to 75mg DAILY for 4 weeks THEN Decrease sertraline (ZOLOFT) to 50mg DAILY for 4 weeks THEN Decrease sertraline (ZOLOFT) to 25mg DAILY for 4 weeks THEN STOP SERTRALINE (ZOLOFT) - Start duloxetine 30mg DAILY and follow-up with Dr. Montanez in 2 -4 weeks to discuss increasing his medications; started. Assessment & Plan (06/27/2024 5:04 PM LIMITED RADIOLOGY TECHNICIAN): -patient is on Wellbutrin, Zoloft, mirtazapine, and multiple other medications. Neurology are in agreement that the patient will benefit from reduction of his medications to prevent polypharmacy which could be contributing to his cognitive difficulties. -Final recs from Neurology 06/10: - Stop Ezetimibe (Zetia) (LDL 30 and also on Pravastatin); Stopped - Decrease mirtazapine (REMERON) to 7.5mg DAILY for 4 weeks then stop mirtazapine, stopped. - Decrease amantadine (SYMMETREL) to 100mg DAILY for 1 week then stop amantadine 06/17/2024, stopped. - Decrease sertraline (ZOLOFT) to 75mg DAILY for 4 weeks THEN Decrease sertraline (ZOLOFT) to 50mg DAILY for 4 weeks THEN Decrease sertraline (ZOLOFT) to 25mg DAILY for 4 weeks THEN STOP SERTRALINE (ZOLOFT) - Start duloxetine 30mg DAILY and follow-up with Dr. Montanez in 2 -4 weeks to discuss increasing his medications; started. Assessment & Plan (06/26/2024 6:44 PM LIMITED RADIOLOGY TECHNICIAN): -patient is on Wellbutrin, Zoloft, mirtazapine, and multiple other medications. Neurology are in agreement that the patient will benefit from reduction of his medications to prevent polypharmacy which could be contributing to his cognitive difficulties. -Final recs from Neurology 06/10: - Stop Ezetimibe (Zetia) (LDL 30 and also on Pravastatin); Stopped - Decrease mirtazapine (REMERON) to 7.5mg DAILY for 4 weeks then stop mirtazapine, stopped. - Decrease amantadine (SYMMETREL) to 100mg DAILY for 1 week then stop amantadine 06/17/2024, stopped. - Decrease sertraline (ZOLOFT) to 75mg DAILY for 4 weeks THEN Decrease sertraline (ZOLOFT) to 50mg DAILY for 4 weeks THEN Decrease sertraline (ZOLOFT) to 25mg DAILY for 4 weeks THEN STOP SERTRALINE (ZOLOFT) - Start duloxetine 30mg DAILY and follow-up with Dr. Montanez in 2 -4 weeks to discuss increasing his medications; started. Assessment & Plan (06/25/2024 6:49 PM LIMITED RADIOLOGY TECHNICIAN): -patient is on Wellbutrin, Zoloft, mirtazapine, and multiple other medications. Neurology are in agreement that the patient will benefit from reduction of his medications to prevent polypharmacy which could be contributing to his cognitive difficulties. -Final recs from Neurology 06/10: - Stop Ezetimibe (Zetia) (LDL 30 and also on Pravastatin); Stopped - Decrease mirtazapine (REMERON) to 7.5mg DAILY for 4 weeks then stop mirtazapine, stopped. - Decrease amantadine (SYMMETREL) to 100mg DAILY for 1 week then stop amantadine 06/17/2024, stopped. - Decrease sertraline (ZOLOFT) to 75mg DAILY for 4 weeks THEN Decrease sertraline (ZOLOFT) to 50mg DAILY for 4 weeks THEN Decrease sertraline (ZOLOFT) to 25mg DAILY for 4 weeks THEN STOP SERTRALINE (ZOLOFT) - Start duloxetine 30mg DAILY and follow-up with Dr. Montanez in 2 -4 weeks to discuss increasing his medications; started. Assessment & Plan (06/25/2024 9:20 AM LIMITED RADIOLOGY TECHNICIAN): -patient is on Wellbutrin, Zoloft, mirtazapine, and multiple other medications. Neurology are in agreement that the patient will benefit from reduction of his medications to prevent polypharmacy which could be contributing to his cognitive difficulties. -Final recs from Neurology 06/10: - Stop Ezetimibe (Zetia) (LDL 30 and also on Pravastatin); Stopped - Decrease mirtazapine (REMERON) to 7.5mg DAILY for 4 weeks then stop mirtazapine, stopped. - Decrease amantadine (SYMMETREL) to 100mg DAILY for 1 week then stop amantadine 06/17/2024, stopped. - Decrease sertraline (ZOLOFT) to 75mg DAILY for 4 weeks THEN Decrease sertraline (ZOLOFT) to 50mg DAILY for 4 weeks THEN Decrease sertraline (ZOLOFT) to 25mg DAILY for 4 weeks THEN STOP SERTRALINE (ZOLOFT) - Start duloxetine 30mg DAILY and follow-up with Dr. Montanez in 2 -4 weeks to discuss increasing his medications; started. Assessment & Plan (06/22/2024 11:27 AM LIMITED RADIOLOGY TECHNICIAN): -patient is on Wellbutrin, Zoloft, mirtazapine, and multiple other medications. Neurology are in agreement that the patient will benefit from reduction of his medications to prevent polypharmacy which could be contributing to his cognitive difficulties. -Final recs from Neurology 06/10: - Stop Ezetimibe (Zetia) (LDL 30 and also on Pravastatin); Stopped - Decrease mirtazapine (REMERON) to 7.5mg DAILY for 4 weeks then stop mirtazapine, stopped. - Decrease amantadine (SYMMETREL) to 100mg DAILY for 1 week then stop amantadine 06/17/2024, stopped. - Decrease sertraline (ZOLOFT) to 75mg DAILY for 4 weeks THEN Decrease sertraline (ZOLOFT) to 50mg DAILY for 4 weeks THEN Decrease sertraline (ZOLOFT) to 25mg DAILY for 4 weeks THEN STOP SERTRALINE (ZOLOFT) - Start duloxetine 30mg DAILY and follow-up with Dr. Montanez in 2 -4 weeks to discuss increasing his medications; started. Laceration without foreign body of scalp, initia l encounter 2024 Cervicalgia 2024 Aphasia 2024 Unspecified fall, initial encounter 2024 Unspecified injury of head, initial encounter Vitamin D deficiency, unspecified 2024 Encounter for Medicare annual wellness exam 09/2023 Assessment & Plan (03/31/2024 2:11 PM CDT): Visit preventive in nature. We reviewed medications, chronic conditions, risk factors, lifestyle recommendations. Reviewed immunization recommendations. Follow-up in 6 months for chronic conditions and 1 year for annual wellness. Discharge planning issues 03/15/2024 Assessment & Plan (03/16/2024 10:32 AM CDT): - 03/15: needs spine xrays, OT eval - 03/16: awaiting OT recs, PT rec home with 24hr assist and HH, awaiting CM eval Rib fractures 03/14/2024 Assessment & Plan (03/16/2024 3:12 PM CDT): Chronic right sided rib fractures - non-acute, not from current fall, patient not having pain - On room air - Pain control PRN - Prior to discharge, the patient maintained adequate oxygenation on room air without the use of accessory muscles COVID 03/14/2024 Assessment & Plan (03/15/2024 4:23 PM CDT): Found to be Covid + on 03/13 Had 2d of headache, congestion, cough prior to weakness and fall - started remdesivir 03/14 - 03/16 - on room air Weakness 03/13/2024 Assessment & Plan (07/14/2024 3:31 PM LIMITED RADIOLOGY TECHNICIAN): No falls since hospital discharge. Continues working with PT and OT. Assessment & Plan (03/16/2024 10:31 AM CDT): - Pt's son stated he became more weak after recent PSF, exacerbated in the past 2 days, likely from COVID - Radiologic evidence of cystitis, however UA is negative - PT/OT assessment (PT-home with 24hr support, OT---) Dysphagia 01/06/2024 Assessment & Plan (01/08/2024 11:39 AM CDT): - RHYTHMIC GYMNASTICS COACH following, c/f chronic aspiration as well. Diet has been advanced and now eating all meals, so NGT has been removed. Has been tolerating PO since NG tube removal. [facility] 01/06 cleared for regular diet and regular/thin liquids while sitting 90 degrees upright and with 100% supervision. Medications can also be taken PO as tolerated Acute CVA (cerebrovascular accident) 01/05/2024 Assessment & Plan (01/08/2024 11:37 AM CDT): Concern for acute stroke with worsening R sided weakness after spinal fusion on POD2. Neuro evaluated, MRI with new hippocampal lesion possibly consistent with acute CVA, though doesn't explain his deficits. Son frustrated by lack of explanation of UE weakness and speech difficulties post-op. - CTA H&N showing 75% stenosis of L CCA, no stenosis of R CCA s/p endarterectomy, diminutive L KRISTEN - Telemetry while inpatient to query afib (no e/o arrhythmia) - SMART Consult performed - started ASA 81 mg, will discuss duration of DAPT (21-d per CHANCE trial) - switched to rosuvastatin 20 mg - TTE without bubble performed: read mentions concern for swirling blood and possible apical thrombus. TTE discussed with echo reader on 01/05 as well as separate Cardiology consult who do not feel that thrombus is present or likely. Will defer full dose anticoagulation - d/c to rehab today Hypertension associated with diabetes 01/05/2024 Assessment & Plan (01/09/2024 10:08 AM CDT): BP post operatively well controlled off medications with some mild hypertension (SBP 130s-150s at times). Restarted home metop 25 01/07 - ctn metop 25 - holding HCTZ 12.5 Leukocytosis 01/04/2024 Assessment & Plan (01/06/2024 5:55 PM CDT): Patient with development of leukocytosis after surgery with peak in SICU of 18.7 on 12/27. Infectious workup at that time notable for CXR showing bibasilar opacities concerning for atelectasis vs aspiration and patient empirically started on HAP coverage with improvement in WBC to john of 9.3 on 12/30. Has since slowly increased to 13.4. Patient has been afebrile and generally minimally symptomatic except for persistent intermittently productive cough and choking overall concerning for persistent aspiration as root etiology. - Of note, had leukocytosis during pre-op labs and chronically for years -repeat workup with serial CXR showing worsening bibasilar streaky opacities c/f aspiration vs atelectasis -UA 01/02 without abnormality Plan: -s/p completion of HAP coverage, monitor off abx and de-schedule APAP -given persistent streaky opacities c/f bibasilar atelectasis and limited mobility, recommend incentive spirometry -Ongoing RHYTHMIC GYMNASTICS COACH eval -no current medications which have strong link to neutrophilia, no changes needed S/P cervical spinal fusion 12/26/2023 Assessment & Plan (03/14/2024 2:20 PM CDT): With Dr. Buenrostro in 11/2023 Has residual right arm weakness following the surgery Ortho-spine evaluated the patient in the ED Myelopathy 12/26/2023 Hyperlipidemia associated with type 2 diabetes m ellitus 12/26/2023 Assessment & Plan (12/03/2024 3:51 PM CDT): Impression: Chronic stable. Plan: Continue Zetia and pravastatin. Assessment & Plan (01/05/2024 2:37 PM CDT): -Continue zetia 10, pravastatin 40 Moderate protein-calorie malnutrition 12/17/2023 Assessment & Plan (06/29/2024 3:59 PM LIMITED RADIOLOGY TECHNICIAN): Nutrition consulted; supplementation as before. Assessment & Plan (06/28/2024 4:28 PM LIMITED RADIOLOGY TECHNICIAN): Nutrition consulted; supplementation as before. Assessment & Plan (06/27/2024 5:03 PM LIMITED RADIOLOGY TECHNICIAN): Nutrition consulted; supplementation as before. Assessment & Plan (06/26/2024 6:43 PM LIMITED RADIOLOGY TECHNICIAN): Nutrition consulted; supplementation as before. Assessment & Plan (06/25/2024 6:47 PM LIMITED RADIOLOGY TECHNICIAN): Nutrition consulted; supplementation as before. Assessment & Plan (06/25/2024 9:15 AM LIMITED RADIOLOGY TECHNICIAN): Nutrition consulted; supplementation as before. Assessment & Plan (06/24/2024 8:40 AM LIMITED RADIOLOGY TECHNICIAN): Nutrition consulted; plan supplementation as before. Cervical spondylosis with myelopathy 11/19/2023 Assessment & Plan (01/05/2024 2:36 PM CDT): 12/25 S/p C2-T2 Posterior Cervical Fusion with Instrumentation, C3-T1 Posterior Laminectomy, C4-C5 Posterior Bilateral Foraminotomy, C5-C6 Posterior Right Foraminotomy - Ortho Spine following - Colon J collar - q4hr neuro checks Dysphagia 11/18/2023 Assessment & Plan (07/14/2024 3:34 PM LIMITED RADIOLOGY TECHNICIAN): Continued outpatient follow-up with speech therapy. Cough unchanged. No fevers. No changes in appetite per son. Scheduled for EGD 07/23. Lungs are clear on exam. SpO2 = 95% Reviewed signs and symptoms warranting immediate follow-up such as shortness of breath, fevers, chills, hemoptysis or changes in appetite. Reviewed swallow precautions Assessment & Plan (06/29/2024 3:59 PM LIMITED RADIOLOGY TECHNICIAN): Per Tarun hilton pt has a cough, especially after eating. CXR is without evidence of pna 16; RHYTHMIC GYMNASTICS COACH for bedside swallow eval: Okay for regular diet/liquids. Assessment & Plan (06/28/2024 4:28 PM LIMITED RADIOLOGY TECHNICIAN): Per Tarun hilton pt has a cough, especially after eating. CXR is without evidence of pna 16; RHYTHMIC GYMNASTICS COACH for bedside swallow eval: Okay for regular diet/liquids. Assessment & Plan (06/27/2024 5:03 PM LIMITED RADIOLOGY TECHNICIAN): Per Tarun hilton pt has a cough, especially after eating. CXR is without evidence of pna 16; RHYTHMIC GYMNASTICS COACH for bedside swallow eval: Okay for regular diet/liquids. Assessment & Plan (06/26/2024 6:43 PM LIMITED RADIOLOGY TECHNICIAN): Per Tarun hilton pt has a cough, especially after eating. CXR is without evidence of pna /16; RHYTHMIC GYMNASTICS COACH for bedside swallow eval: Okay for regular diet/liquids. Assessment & Plan (06/25/2024 6:47 PM LIMITED RADIOLOGY TECHNICIAN): Per Tarun hilton pt has a cough, especially after eating. CXR is without evidence of pna 16; RHYTHMIC GYMNASTICS COACH for bedside swallow eval: Okay for regular diet/liquids. Assessment & Plan (06/25/2024 9:15 AM LIMITED RADIOLOGY TECHNICIAN): Per sonTarun, pt has a cough, especially after eating. CXR is without evidence of pna 16; RHYTHMIC GYMNASTICS COACH for bedside swallow eval: Okay for regular diet/liquids. Assessment & Plan (06/24/2024 8:41 AM LIMITED RADIOLOGY TECHNICIAN): Per sonTarun, pt has a cough, especially after eating. CXR is without evidence of pna 06/13; RHYTHMIC GYMNASTICS COACH for bedside swallow eval: Okay for regular diet/liquids. Hospital discharge follow-up 09/05/2023 Assessment & Plan (03/31/2024 2:11 PM CDT): Ceci Obando NP have personally reviewed pertinent inpatient and/or ED records, including discharge medications and Cl[employer]esk if applicable. This patient's discharge medication list has been reviewed and reconciled with his outpatient medication list and has also been reviewed with patient and/or caregiver. I have noted any changes. Assessment & Plan (09/05/2023 1:51 PM LIMITED RADIOLOGY TECHNICIAN): Ceci Obando NP have personally reviewed pertinent inpatient and/or ED records, including discharge medications and Clindesk if applicable. This patient's discharge medication list has been reviewed and reconciled with his outpatient medication list and has also been reviewed with patient and/or caregiver. I have noted any changes. Malaise 09/03/2023 Assessment & Plan (09/03/2023 1:24 AM LIMITED RADIOLOGY TECHNICIAN): - 4-5 days of symptoms reminiscent or prior pneumonia per son. Has had malaise, poor PO intake, generalized weakness, cough with yellow sputum, nausea, 1x vomiting, and diarrhea - Had been prescribed augmentin, but not yet started - CXR and CT without evidence of PNA. CT without acute abdominal process. RVP negative. - Unclear etiology for this, but workup reassuring. Possiblity of a viral illness that will improve spontaneously. - Symptomatic and supportive care. T12 compression fracture 09/02/2023 Assessment & Plan (07/14/2024 3:32 PM LIMITED RADIOLOGY TECHNICIAN): Has follow-up with neuro/spine today to discuss candidacy for kyphoplasty. Assessment & Plan (03/31/2024 2:11 PM CDT): Has follow-up with [facility] today. His son will call with update and can consider hydrocodone prescription at that time. Assessment & Plan (03/16/2024 3:14 PM CDT): Found to have further height loss of a mild to moderate compression deformity of the T12 vertebral body on CT CAP 816 - Ortho spine consulted - No acute interventions - [facility]O for comfort, q4h neuro checks - AP/lateral scoliosis x ray in TLSO - PT/OT, pain control Assessment & Plan (09/05/2023 1:51 PM LIMITED RADIOLOGY TECHNICIAN): No neurological complications. Can continue with Tylenol p.r.n.. Will send in tramadol for severe exacerbations. Use sparingly. Reviewed scheduling and side effects. Assessment & Plan (09/03/2023 1:03 AM LIMITED RADIOLOGY TECHNICIAN): - Pt with incidentally noted age-indeterminate T12 irregularity favored to represent subacute or chronic compression stranding. - pt had some urinary incontinence, but new new neuro symptoms or deficits otherwise. - bladder scan reported <200 - Ortho consulted. MRI spine pending - Per ortho: NPO, Q4h neurochecks, no DVT ppx, IPAP evaluation - On my discussion, pt and son do not want admission, but willing to stay for MRI results and ortho spine recs. No medicine beds, so if pain ok, MRI reassuring, and no surgical plans likely will dc from ED. Chronic ischemic left KRISTEN stroke 07/30/2023 Abulia 07/30/2023 Age-related cataract of right eye 07/30/2023 Peripheral arterial disease 05/10/2023 Assessment & Plan (06/29/2024 3:59 PM LIMITED RADIOLOGY TECHNICIAN): -continue home Xarelto, statin, cilostazol 06/13: per discussion with his son, Tarun, pt was taking Plavix as Rx'd. Will continue at discharge. Assessment & Plan (06/28/2024 4:28 PM LIMITED RADIOLOGY TECHNICIAN): -continue home Xarelto, statin, cilostazol 06/13: per discussion with his son, Tarun, pt was taking Plavix as Rx'd. Have continued. Assessment & Plan (06/27/2024 5:03 PM LIMITED RADIOLOGY TECHNICIAN): -continue home Xarelto, statin, cilostazol 06/13: per discussion with his son, Tarun, pt was taking Plavix as Rx'd. Have continued. Assessment & Plan (06/26/2024 6:43 PM LIMITED RADIOLOGY TECHNICIAN): -continue home Xarelto, statin, cilostazol 06/13: per discussion with his son, Tarun, pt was taking Plavix as Rx'd. Have continued. Assessment & Plan (06/25/2024 6:47 PM LIMITED RADIOLOGY TECHNICIAN): -continue home Xarelto, statin, cilostazol 06/13: per discussion with his son, Tarun, pt was taking Plavix as Rx'd. Have continued. Assessment & Plan (06/25/2024 9:15 AM LIMITED RADIOLOGY TECHNICIAN): -continue home Xarelto, statin, cilostazol -not taking Plavix per son, 06/13: per discussion with his son, Tarun pt was taking Plavix as Rx'd. Consider pt's fall risk Assessment & Plan (06/24/2024 8:41 AM LIMITED RADIOLOGY TECHNICIAN): -continue home Xarelto, statin, cilostazol (currently on hold for kyphoplasty, resume after procedure, though see above) -not taking Plavix per son, 06/13: per discussion with his son, Tarun pt was taking Plavix as Rx'd. Consider pt's fall risk Assessment & Plan (03/16/2024 3:13 PM CDT): Most recently had bilateral SFA angioplasty (no stents placed per op report) in 10/2023 On Xarelto and Plavix at home Resumed home Plavix in the hospital Xarelto resumed at discharge Assessment & Plan (01/05/2024 2:42 PM CDT): -continue rosuvastatin, ezetimibe -plavix and xarelto restarted post-operative, is tolerating Cellulitis of left lower limb 02/21/2023 Depression, unspecified 02/21/2023 Assessment & Plan (01/05/2024 2:49 PM CDT): - Continue home Wellbutrin 75 BID, mirtazapine 7.5 nightly, and zoloft 100 daily Difficulty in walking, not elsewhere classified 02/21/2023 Dysphagia, oral phase 02/21/2023 Generalized anxiety disorder 02/21/2023 Local infection of the skin and subcutaneous tissue, unspecified 02/21/2023 Major depressive disorder, single episode, mild 02/21/2023 Pneumonitis due to inhalation of other solids an d liquids 02/21/2023 Sepsis, unspecified organism 02/21/2023 Other symptoms and signs inv olving cognitive functions following cerebral infarction 02/21/2023 Atherosclerotic heart diseas e of [place] coronary artery without angina pectoris 02/21/2023 Aphasia following cerebral infarction 02/21/2023 Assessment & Plan (09/05/2023 1:51 PM LIMITED RADIOLOGY TECHNICIAN): Able to communicate. Swallowing without difficulty. Other intervertebral disc degeneration, lumbar r egion 02/21/2023 Essential (primary) hypertension 02/21/2023 Need for assistance with personal care Complication of diabetes mellitus 02/21/2023 Aspiration pneumonitis 02/13/2023 Pain and swelling of left knee 02/13/2023 Generalized weakness 02/12/2023 Encounter for annual wellness exam in Medicare p atient 01/17/2023 Assessment & Plan (05/01/2023 3:49 PM CDT): Preventive exam; reviewed recommended preventive screenings and vaccinations. Encourage annual flu vaccine. Discussed fall precautions. Cognitive impairment 06/25/2022 Assessment & Plan (06/29/2024 3:58 PM LIMITED RADIOLOGY TECHNICIAN): -continue memantine and donepezil -RHYTHMIC GYMNASTICS COACH evaluated the patient. As per RHYTHMIC GYMNASTICS COACH assessment patient is having moderate aphasia. Pt seems to be at baseline for aphasia and at baseline level of functioning ; No inpatient therapy indicated; -Pt will benefit from outpatient RHYTHMIC GYMNASTICS COACH Am not fully convinced that delirium best explains patient's recent errant statement re: location, as it is not fluctuating. Advised son earlier that non-wavering cognitive impairment is more consistent with dementia (in keeping with severe cerebral atrophy on CT head and abovementioned prescriptions). Assessment & Plan (06/28/2024 4:28 PM LIMITED RADIOLOGY TECHNICIAN): -continue memantine and donepezil -RHYTHMIC GYMNASTICS COACH evaluated the patient. As per RHYTHMIC GYMNAST[employer] COACH assessment patient is having moderate aphasia. Pt seems to be at baseline for aphasia and at baseline level of functioning ; No inpatient therapy indicated; -Pt will benefit from outpatient [employer] GYMNAST[employer] COACH Am not fully convinced that delirium best explains patient's errant statement re: location, as it is not fluctuating. Advised son yesterday that non-wavering cognitive impairment is more consistent with dementia (in keeping with severe cerebral atrophy on CT head and abovementioned prescriptions). Will continue to monitor. Assessment & Plan (06/27/2024 5:02 PM LIMITED RADIOLOGY TECHNICIAN): -continue memantine and donepezil -RHYTHMIC GYMNASTICS COACH evaluated the patient. As per RHYTHMIC GYMNASTICS COACH assessment patient is having moderate aphasia. Pt seems to be at baseline for aphasia and at baseline level of functioning ; No inpatient therapy indicated; -Pt will benefit from outpatient [employer]HYTHMIC GYMNASTICS COACH Am not fully convinced that delirium best explains patient's errant statement re: location, as it is not fluctuating. Advised son that non-wavering cognitive impairment is more consistent with dementia (in keeping with severe cerebral atrophy on CT head and abovementioned prescriptions). Assessment & Plan (06/26/2024 6:43 PM LIMITED RADIOLOGY TECHNICIAN): -continue memantine and donepezil -RHYTHMIC GYMNASTICS COACH evaluated the patient. As per RHYTHMIC GYMNASTICS COACH assessment patient is having moderate aphasia. Pt seems to be at baseline for aphasia and at baseline level of functioning ; No inpatient therapy indicated; -Pt will benefit from outpatient RHYTHMIC GYMNASTICS COACH -Intermittent delirium; delirium precautions including mobilization as able. Will obtain CXR and UA to exclude infectious causes. Have stopped oxycodone, as could be contributing. Assessment & Plan (06/25/2024 6:46 PM LIMITED RADIOLOGY TECHNICIAN): -continue memantine and donepezil -RHYTHMIC GYMNASTICS COACH evaluated the patient. As per RHYTHMIC GYMNASTICS COACH assessment patient is having moderate aphasia. Pt seems to be at baseline for aphasia and at baseline level of functioning ; No inpatient therapy indicated; -Pt will benefit from outpatient RHYTHMIC GYMNAST[employer] COACH -Intermittent delirium; delirium precautions including mobilization as able. Assessment & Plan (06/25/2024 9:15 AM LIMITED RADIOLOGY TECHNICIAN): -continue memantine and donepezil -RHYTHMIC GYMNASTICS COACH evaluated the patient. As per RHYTHMIC GYMNASTICS COACH assessment patient is having moderate aphasia. Pt seems to be at baseline for aphasia and at baseline level of functioning ; No inpatient therapy indicated; -Pt will benefit from outpatient RHYTHMIC GYMNASTICS COACH -Intermittent delirium; delirium precautions including mobilization as able. Assessment & Plan (06/24/2024 8:42 AM LIMITED RADIOLOGY TECHNICIAN): -continue memantine and donepezil -RHYTHMIC GYMNASTICS COACH evaluated the patient. As per RHYTHMIC GYMNASTICS COACH assessment patient is having moderate aphasia. Pt seems to be at baseline for aphasia and at baseline level of functioning ; No inpatient therapy indicated; -Pt will benefit from outpatient RHYTHMIC GYMNASTICS COACH -Intermittent delirium; delirium precautions including mobilization as able. Claudication 12/11/2021 Bilateral carotid artery stenosis 11/14/2021 Assessment & Plan (12/03/2024 3:50 PM CDT): Impression: Patient has a history of a right carotid endarterectomy in October 2018 at [facility]. Patient also status post left carotid endarterectomy on October 28, [address] Ngo. Patient has not undergone his postop visit with Dr. Ngo as he recently discharged from a rehab facility. Plan: Unsure of the patient's visit today as patient is status post left carotid endarterectomy approximately 1 month ago. Discussed with the patient and his son he will need to make a postoperative appointment with Dr. Ngo. DDD (degenerative disc disease), cervical 2020 Gait disturbance 05/27/2021 Urinary frequency 12/08/2020 Encounter for screening colonoscopy 03/11/2020 Overview (03/11/2020): Added automatically from request for surgery [id number] Episodic confusion 05/02/2019 Assessment & Plan (05/02/2019 10:00 AM CDT): Patient is back to baseline. Recommended EEG outpatient and follow up with neurology. Labs returned to baseline at discharge. Bilateral hearing loss 05/02/2019 Overview (07/12/2019): 07/08/2019 Audiology evaluation. Due to the asymmetry in thresholds and word recognition scores, it was recommended that the patient follow up with ENT in our office. He agreed and scheduled this appointment as well as a hearing aid evaluation in the future. appointment scheduled for 08/2019 with ENT. Assessment & Plan (05/02/2019 10:01 AM CDT): Referral placed to ENT and audiology as requested. Elevated CK 05/02/2019 Assessment & Plan (05/02/2019 10:00 AM CDT): Repeat today. Discoloration and thickening of nails both feet 01/07/2019 Assessment & Plan (01/07/2019 6:28 PM CDT): -Also discussed applying Vaseline before bed at night and softening nail then file top of nails with elkin board. -Discussed signs and symptoms of infection including erythema, warmth, fevers or drainage and when to RTC. 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 Continue current treatment regimen. Reminded to bring in blood sugar diary at next visit. Dietary recommendations for ADA diet. Discussed sick day management. Discussed foot care. Reminded to get yearly retinal exam. Continue metformin, add Jardiance. Discussed potential side effects including dehydration and mycotic infection Diabetes will be reassessed in 3 months. ABIs ordered to evaluate peripheral vascular status due to discoloration bilateral feet. At risk for falling 06/27/2018 Overview (06/27/2018): Discussed fall precautions including adequate lighting to the bathroom, creating a clear path, changing positions slowly, getting rid of throw rugs, congolese chi/ working on balance, avoiding alcohol or other substances that can precipitate falling. Encouraged evaluation with physical therapy to further evaluate balance and strengthening. He declined today. Encouraged home evaluation of occupational therapy to assess for home modifications to reduce fall risk. Discussed importance of seeking medical care if having a fall, especially if he falls and hits his head due to being on anticoagulation. Cough 06/24/2018 Assessment & Plan (03/19/2019 8:44 PM CDT): CXR today. See plan for COPD. If worsening or failing to improve recommend chest CT given tobacco use history. Assessment & Plan (08/27/2018 5:23 PM LIMITED RADIOLOGY TECHNICIAN): Pt with chronic cough. Will get CXR today, if normal will order PFTs to assess COPD considering smoking history. Assessment & Plan (06/27/2018 3:41 PM LIMITED RADIOLOGY TECHNICIAN): -Most likely viral URI. Lungs CTA on exam. -Discussed supportive measures for cough including fluids, and tea with honey. -Discussed warning signs of when to RTC including shortness of breath, wheezing, fatigue, or worsening cough. Patient may benefit from screening CT scan considering smoking history. Benign prostatic hyperplasia with lower urinary tract symptoms 01/13/2018 Assessment & Plan (11/23/2020 2:22 PM CDT): PSA today. Urology consultation. Start Flomax once daily. Type 2 diabetes mellitus with complication 09/30 Assessment & Plan (07/14/2024 3:32 PM LIMITED RADIOLOGY TECHNICIAN): Jardiance discontinued at hospital discharge. Continue to monitor closely. Lab Results Component Value Date HGBA1C 6.4 (H) 06/11/2024 HGBA1C 6.0 (H) 12/17/2023 HGBA1C 7.0 (H) 05/01/2023 Assessment & Plan (06/29/2024 3:55 PM LIMITED RADIOLOGY TECHNICIAN): A1c 6.4. POC glu in 100's -hold Jardiance while inpt Consider stopping Jardiance at discharge given poor PO intake. -SSI while admitted. Good glycemic control currently. Assessment & Plan (06/28/2024 4:27 PM LIMITED RADIOLOGY TECHNICIAN): A1c 6.4. POC glu in 100's -hold Jardiance while inpt Consider stopping Jardiance at discharge given poor PO intake. -SSI while admitted. Glycemic control erratic; will continue current corrective insulin. Assessment & Plan (06/27/2024 4:58 PM LIMITED RADIOLOGY TECHNICIAN): A1c 6.4. POC glu in 100's -hold Jardiance while inpt Consider stopping Jardiance at discharge given poor PO intake. -SSI while admitted. Glycemic control erratic; will switch to high-dose slide to attempt to counter. Assessment & Plan (06/26/2024 6:41 PM LIMITED RADIOLOGY TECHNICIAN): A1c 6.4. POC glu in 100's -hold Jardiance while inpt Consider stopping Jardiance at discharge given poor PO intake. -SSI while admitted. Glycemic control erratic; may consider switching to high- dose slide. Assessment & Plan (06/25/2024 6:46 PM LIMITED RADIOLOGY TECHNICIAN): A1c 6.4. POC glu in 100's -hold Jardiance while inpt Consider stopping Jardiance at discharge given poor PO intake. -SSI while admitted. Decent glycemic control currently. Assessment & Plan (06/25/2024 9:14 AM LIMITED RADIOLOGY TECHNICIAN): A1c 6.4. POC glu in 100's -hold Jardiance while inpt Consider stopping Jardiance at discharge given poor PO intake. -SSI while admitted. Excellent glycemic control currently. Assessment & Plan (06/24/2024 8:42 AM LIMITED RADIOLOGY TECHNICIAN): A1c 6.4. POC glu in 100's -hold Jardiance while inpt Consider stopping Jardiance at discharge given poor PO intake. -SSI while admitted. Assessment & Plan (03/31/2024 2:10 PM CDT): Has been stable on Jardiance and metformin. No changes. Will continue to monitor. Assessment & Plan (01/06/2024 6:03 PM CDT): History of DM2, but most recent A1C was 6.0%. -holding jardiance, metformin -will continue SSI with QID accuchecks Assessment & Plan (09/05/2023 3:12 PM LIMITED RADIOLOGY TECHNICIAN): Recent A1c 7.0%. Encouraged compliance with medication regimen. Will continue to monitor. Assessment & Plan (09/03/2023 1:05 AM LIMITED RADIOLOGY TECHNICIAN): - A1c 7.0% on 05/01/23 - Hold home metformin and empagliflozin - Monitor BSG on SSI Assessment & Plan (05/01/2023 3:53 PM CDT): Discussed continued foot care. Encourage annual eye exams. Lab Results Component Value Date HGBA1C 7.6 (H) 01/24/2023 HGBA1C 8.5 (H) 09/28/2022 HGBA1C 7.8 06/25/2022 Stable, no changes made today. Assessment & Plan (11/23/2020 2:27 PM CDT): Diabetes is worsening. Lab Results Component Value Date HGBA1C 8.5 11/23/2020 Start checking glucose fasting daily. Dietary recommendations for ADA diet. Discussed foot care. Reminded to get yearly retinal exam. Continue metformin and Increase Jardiance from 10 mg daily to 25 mg daily. Diabetes will be reassessed in 3 months. Assessment & Plan (01/11/2020 1:50 PM CDT): Diabetes is improving. Continue current treatment regimen. Reminded to bring in blood sugar diary at next visit. Dietary recommendations for ADA diet. Discussed sick day management. Discussed foot care. Reminded to get yearly retinal exam. Continue metformin and Jardiance. Diabetes will be reassessed in 3 months. Assessment & Plan (04/17/2019 6:45 PM CDT): Diabetes is improving. Continue current treatment regimen. Reminded to bring in blood sugar diary at next visit. Dietary recommendations for ADA diet. Discussed sick day management. Discussed foot care. Reminded to get yearly retinal exam. Continue metformin and Jardiance. Get ABIs as previously ordered given decreased peripheral pulses and history of CAD. Diabetes will be reassessed in 3 months. Assessment & Plan (01/07/2019 6:29 PM CDT): Diabetes is worsening. Continue current treatment regimen. Reminded to bring in blood sugar diary at next visit. Dietary recommendations for ADA diet. Discussed sick day management. Discussed foot care. Reminded to get yearly retinal exam. Continue metformin, add Jardiance. Discussed potential side effects including dehydration and mycotic infection Diabetes will be reassessed in 3 months. Assessment & Plan (08/27/2018 5:16 PM LIMITED RADIOLOGY TECHNICIAN): Diabetes is unchanged. Continue current treatment regimen. Dietary recommendations for ADA diet. Regular aerobic exercise. Reminded to get yearly retinal exam. Continue metformin 1000 mg b.i.d.. Will get A1c today Diabetes will be reassessed in 3 months. Assessment & Plan (06/27/2018 3:52 PM LIMITED RADIOLOGY TECHNICIAN): Tolerating metformin well. Continue metformin 500 mg BID. Repeat A1C in 2 months. Assessment & Plan (05/27/2018 9:17 AM CDT): Diabetes is worsening. Regular aerobic exercise. Discussed foot care. Reminded to get yearly retinal exam. Start metformin 500 mg BID Diabetes will be reassessed in 3 months. Assessment & Plan (01/19/2018 9:57 PM CDT): Diabetes is improving with lifestyle modifications. Continue current treatment regimen. Reminded to bring in blood sugar diary at next visit. Dietary recommendations for ADA diet. Regular aerobic exercise. Discussed ways to avoid symptomatic hypoglycemia. Discussed sick day management. Discussed foot care. Reminded to get yearly retinal exam. Diabetes will be reassessed today. Assessment & Plan (11/24/2017 8:37 PM CDT): Diabetes is newly identified. Hgb A1c down to 8 Continue current treatment regimen. Reminded to bring in blood sugar diary at next visit. Dietary recommendations for ADA diet. Discussed ways to avoid symptomatic hypoglycemia. Discussed sick day management. Discussed foot care. Reminded to get yearly retinal exam. Diabetes will be reassessed in 2 months for regular OV. . 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 Xrays today. See above. Gastroesophageal reflux disease without esophagi tis 06/09/2017 Assessment & Plan (06/09/2017 6:25 PM LIMITED RADIOLOGY TECHNICIAN): Plan to start Omeprazole 40 mg daily. Constipation 03/07/2017 Assessment & Plan (01/07/2024 2:20 PM CDT): History of chronic constipation with reported 1-2 BM/wk. Tolerating TF, no nausea/vomiting, no bloating/distention, and exam with soft abdomen and +BS. BM reported by son 01/05 Plan: -schedule miralax daily, bisacodyl daily -continue lactulose TID PRN -if no improvement, consider tap water or fleet enema Assessment & Plan (06/24/2018 1:48 PM LIMITED RADIOLOGY TECHNICIAN): -Discussed increasing fiber in diet including eating more fruits and vegetables. -Peaches, pears, prunes, and plums are all great fruits to help with constipation. -Encouraged exercise and getting a full 8 glasses of water per day. -RTC if constipation worsens, does not improve, or patient has increase in abdominal pain. Recommended repeat colonoscopy. Last in 2003. Osteoarthritis 03/07/2017 Overview (03/07/2017): Osteoarthritis; Comments: MAGDALENA 01/18/2014 - Assessment & Plan (06/27/2018 3:53 PM LIMITED RADIOLOGY TECHNICIAN): Discuss treatment of osteoarthritis. Offered orthopedic referral for injection. Offered x-ray, patient declined today. Encouraged him to take Tylenol 650 mg every 6 hr p.r.n. for pain Assessment & Plan (09/26/2017 6:29 AM LIMITED RADIOLOGY TECHNICIAN): Offered NSAIDs vs topical agent. Pt declined. Encouraged pt with need to increase activity strengthening knees-stationary bike, ROM exercises etc Assessment & Plan (03/07/2017 9:07 PM CDT): Recommend staying active. Suggested tylenol ES prn. Obesity (BMI 30-39.9) 03/07/2017 Assessment & Plan (05/27/2021 8:10 AM CDT): Counseled on weight. Assessment & Plan (01/11/2020 1:50 PM CDT): Obesity is unchanged. Discussed the patient's BMI. The BMI is above average; BMI management plan is completed. General weight loss/lifestyle modification strategies discussed (elicit support from others; identify saboteurs; non-food rewards, etc). Behavioral treatment: stress management. Diet interventions: moderate (500 kCal/d) deficit diet. Informal exercise measures discussed, e.g. taking stairs instead of elevator. Regular aerobic exercise program discussed. Assessment & Plan (04/17/2019 6:45 PM CDT): Obesity is unchanged. Discussed the patient's BMI. The BMI is above average; BMI management plan is completed. General weight loss/lifestyle modification strategies discussed (elicit support from others; identify saboteurs; non-food rewards, etc). Behavioral treatment: stress management. Diet interventions: moderate (500 kCal/d) deficit diet. Informal exercise measures discussed, e.g. taking stairs instead of elevator. Regular aerobic exercise program discussed. Assessment & Plan (01/07/2019 6:30 PM CDT): Obesity is unchanged. Discussed the patient's BMI. The BMI is above average; BMI management plan is completed. General weight loss/lifestyle modification strategies discussed (elicit support from others; identify saboteurs; non-food rewards, etc). Behavioral treatment: stress management. Diet interventions: moderate (500 kCal/d) deficit diet. Informal exercise measures discussed, e.g. taking stairs instead of elevator. Regular aerobic exercise program discussed. Assessment & Plan (08/27/2018 5:18 PM LIMITED RADIOLOGY TECHNICIAN): Obesity is unchanged. Discussed the patient's BMI. The BMI is above average; BMI management plan is completed. General weight loss/lifestyle modification strategies discussed (elicit support from others; identify saboteurs; non-food rewards, etc). Avoid fast food. Encouraged 30 min of physical activity daily. Assessment & Plan (06/27/2018 3:43 PM LIMITED RADIOLOGY TECHNICIAN): Obesity is unchanged. Discussed the patient's BMI. The BMI is above average; BMI management plan is completed. General weight loss/lifestyle modification strategies discussed (elicit support from others; identify saboteurs; non-food rewards, etc). Avoid fast food. Encouraged 30 min of physical activity daily. Assessment & Plan (05/27/2018 9:18 AM CDT): -Body mass index is 32.78 kg/m . For a healthy weight should have BMI between 20-24.9 kg/m2. -Discussed with patient [employer] dietary and exercise recommendations, 30 minutes moderate activity at least 5 days per week. (150 minutes total). -Discussed risk factors associated with obesity including risk for diabetes, hypertension, hyperlipidemia, and some types of cancer. Assessment & Plan (01/19/2018 9:59 PM CDT): Obesity is unchanged. Discussed the patient's BMI. The BMI is above average; BMI management plan is completed. General weight loss/lifestyle modification strategies discussed (elicit support from others; identify saboteurs; non-food rewards, etc). Assessment & Plan (11/24/2017 8:39 PM CDT): Obesity is worsening. Discussed the patient's BMI. The BMI is above average; BMI management plan is completed. General weight loss/lifestyle modification strategies discussed (elicit support from others; identify saboteurs; non-food rewards, etc). Assessment & Plan (09/26/2017 6:30 AM LIMITED RADIOLOGY TECHNICIAN): Weight is improving with lifestyle modifications. Discussed the patient's BMI. The BMI is above average; BMI management plan is completed. General weight loss/lifestyle modification strategies discussed (elicit support from others; identify saboteurs; non-food rewards, etc). Assessment & Plan (06/09/2017 6:24 PM LIMITED RADIOLOGY TECHNICIAN): Obesity is unchanged. Discussed the patient's BMI. The BMI is above average; BMI management plan is completed. General weight loss/lifestyle modification strategies discussed (elicit support from others; identify saboteurs; non-food rewards, etc). Needs exercise regimen. Assessment & Plan (03/07/2017 9:08 PM CDT): Obesity is unchanged. Discussed the patient's BMI. The BMI is above average; BMI management plan is completed. General weight loss/lifestyle modification strategies discussed (elicit support from others; identify saboteurs; non-food rewards, etc). Carotid artery disease 06/01/2016 Overview (11/02/2016): Bilateral carotid artery disease Assessment & Plan (05/27/2021 8:09 AM CDT): Needs cardiology follow up. Discussed importance of his adherence to his medication to prevent future event. Assessment & Plan (11/23/2020 2:23 PM CDT): S/p right carotid endarterectomy 10/2018 Continue Plavix, aspirin and hyperlipidemia treatment. Follow up with Dr. Hernández. Assessment & Plan (05/02/2019 10:01 AM CDT): Recommended repeat carotid Dopplers. Continue Plavix, aspirin and hyperlipidemia treatment Assessment & Plan (06/27/2018 3:40 PM LIMITED RADIOLOGY TECHNICIAN): Worsening on carotid dopplers. Discussed significance of finding and referral to vascular surgeon as previously placed by Dr. Hernández. Contact information provided in after visit summary. Encouraged patient to go see vascular surgeon considering prior history of CVA and significant stenosis. Discussed that without treatment he will be at risk for another stroke. Discussed importance of staying on Plavix for CVA prevention. Assessment & Plan (05/27/2018 9:12 AM CDT): Worsening on carotid dopplers. Discussed significance of finding and referral to vascular surgeon as previously placed by Dr. Hernández. Contact information provided in after visit summary. Encouraged patient to go see vascular surgeon considering prior history of CVA and significant stenosis. 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 Currently neurologically at baseline. -continue donepizil 5 -continue memantine 10 BID Assessment & Plan (05/01/2023 3:48 PM CDT): Son and patient both relay that memory seems to have worsened some in the past year. No changes in weight or appetite. Son denies any safety concerns or behavioral disturbance. Assessment & Plan (11/23/2020 2:24 PM CDT): Continue Namenda. Assessment & Plan (05/27/2018 9:12 AM CDT): Continue the Namenda and prophylactic medications to prevent further stroke including pravastatin 80 mg daily, aspirin 81 mg daily, and Plavix 75 mg daily Herniated lumbar intervertebral disc 11/29/2015 Overview (11/01/2016): Prolapsed lumbar intervertebral disc Expressive aphasia 11/28/2014 Overview (11/01/2016): Expressive aphasia Assessment & Plan (05/02/2019 10:00 AM CDT): Secondary to previous CVA recommended speech therapy which patient declines. Hypertension associated with diabetes 10/15/2014 Assessment & Plan (09/03/2023 1:02 AM LIMITED RADIOLOGY TECHNICIAN): - Continue home metoprolol and HCTZ Assessment & Plan (05/01/2023 3:52 PM CDT): Pressure is well controlled, no change in medication regimen. Assessment & Plan (05/27/2021 8:10 AM CDT): Hypertension is worsening/he has been non adherent with his blood pressure medication. Previously well controlled on therapy. He was previously well controlled on hydrochlorothiazide 12.5 mg daily, amlodipine 5 mg daily, metoprolol extended release 25 mg daily Continue current treatment regimen. Dietary sodium restriction. Weight loss. Regular aerobic exercise. Ambulatory blood pressure monitoring. Blood pressure will be reassessed in 2 weeks. Assessment & Plan (11/23/2020 2:26 PM CDT): Hypertension is unchanged. Previously well controlled on therapy. He did not take his blood pressure medication today. He was previously well controlled on hydrochlorothiazide 12.5 mg daily, amlodipine 10 mg daily, metoprolol extended release 25 mg daily Continue current treatment regimen. Dietary sodium restriction. Weight loss. Regular aerobic exercise. Ambulatory blood pressure monitoring. Blood pressure will be reassessed in 4 weeks. Assessment & Plan (01/11/2020 1:49 PM CDT): Hypertension is improving with treatment. Continue current treatment regimen. Dietary sodium restriction. Weight loss. Regular aerobic exercise. Ambulatory blood pressure monitoring. Blood pressure will be reassessed in 3 months. Assessment & Plan (05/02/2019 10:00 AM CDT): Hypertension is improving with treatment. Continue current treatment regimen. Dietary sodium restriction. Weight loss. Regular aerobic exercise. Ambulatory blood pressure monitoring. Blood pressure will be reassessed in 3 months. Assessment & Plan (04/17/2019 6:43 PM CDT): Hypertension is improving with treatment. Continue current treatment regimen. Dietary sodium restriction. Weight loss. Regular aerobic exercise. Ambulatory blood pressure monitoring. Blood pressure will be reassessed in 3 months. Assessment & Plan (01/07/2019 6:29 PM CDT): Hypertension is improving with treatment. Continue current treatment regimen. Dietary sodium restriction. Weight loss. Regular aerobic exercise. Ambulatory blood pressure monitoring. Blood pressure will be reassessed in 3 months. Assessment & Plan (08/27/2018 5:19 PM LIMITED RADIOLOGY TECHNICIAN): Pt had been noncompliant with antihypertensives. Continue metoprolol hydrochlorothiazide 25-12.5 mg daily. Add amlodipine 5 mg daily. If still elevated at follow up increase to 10 mg daily. Encouraged him to check his blood pressure at home. Discussed importance of compliant with medication and monitoring his blood pressure. Discussed risks of cardiovascular events since stroke with uncontrolled hypertension and risk factors of diabetes, previous CVA, carotid stenosis. Bring all medications to your follow up. Assessment & Plan (06/27/2018 3:45 PM LIMITED RADIOLOGY TECHNICIAN): Patient has been non compliant with his antihypertensive therapy. Will restart metoprolol hydrochlorothiazide 25-12.5 mg daily. Encouraged him to check his blood pressure at home. If continues to be elevated at follow-up will then add his amlodipine 10 mg daily back. Discussed importance of compliant with medication and monitoring his blood pressure. Discussed risks of cardiovascular events since stroke with uncontrolled hypertension and risk factors of diabetes, previous CVA, carotid stenosis. Assessment & Plan (05/27/2018 9:16 AM CDT): Hypertension is worsening. Continue current treatment regimen. Regular aerobic exercise. Continue current medications. patient states he does not know which blood pressure medication he is out of. Encouraged him to bring all medications to next appointment and review his medications at home with list provided today. Call if needing refill on metoprolol-HCTZ 25-12.5 mg daily or amlodipine 10 mg daily. Previously controlled at other appointments. Blood pressure will be reassessed in 4 weeks. Assessment & Plan (01/19/2018 9:58 PM CDT): Hypertension is stable. . Continue current treatment regimen. Dietary sodium restriction. Regular aerobic exercise. Blood pressure will be reassessed at the next regular appointment. Assessment & Plan (09/26/2017 6:23 AM LIMITED RADIOLOGY TECHNICIAN): Hypertension is controlled. . Continue current treatment regimen. Dietary sodium restriction. Weight loss. Regular aerobic exercise. Blood pressure will be reassessed at the next regular appointment. Assessment & Plan (06/09/2017 6:21 PM LIMITED RADIOLOGY TECHNICIAN): Hypertension is controlled. . Continue current treatment regimen. Weight loss. Regular aerobic exercise. Blood pressure will be reassessed at the next regular appointment. Assessment & Plan (03/07/2017 9:04 PM CDT): Hypertension is well controlled. . Continue current treatment regimen. Dietary sodium restriction. Regular aerobic exercise. Blood pressure will be reassessed at the next regular appointment. Obstructive sleep apnea syndrome 10/15/2014 Assessment & Plan (05/02/2019 9:54 AM CDT): Recommended CPAP at night. Also recommended pulmonology consultation for adjustment of CPAP in treatment of EMERITA. Assessment & Plan (08/27/2018 5:24 PM LIMITED RADIOLOGY TECHNICIAN): Discussed importance of wearing CPAP at night to prevent complications from sleep apnea including risk for heart attack and stroke and worsening cardiovascular status Assessment & Plan (06/09/2017 6:23 PM LIMITED RADIOLOGY TECHNICIAN): Compliant with Cpap. Mixed simple and mucopurulent chronic bronchitis ([facility]) 10/15/2014 Assessment & Plan (05/02/2019 9:58 AM CDT): COPD is worsening. Recommend albuterol p.r.n. Add Spiriva once daily. Has declined chest CT in past Recommended pulmonology consultation. -Discussed warning signs of when to RTC including shortness of breath, wheezing, fatigue, or worsening cough. Assessment & Plan (04/17/2019 6:44 PM CDT): COPD is worsening. Recommend albuterol p.r.n.. Recommended chest CT given his history of smoking. Discussed this is used for early detection of lung cancer, he declines chest ct at this time. Patient would likely benefit from medication such as Spiriva, but he declines any new inhaler medications today. Did recommend flonase for any post nasal drip that may also be contributing to cough when lying flat. -Discussed warning signs of when to RTC including shortness of breath, wheezing, fatigue, or worsening cough. Assessment & Plan (03/19/2019 8:45 PM CDT): COPD is worsening. Recommend albuterol p.r.n.. Use consistently every 4 hours for the next week. Start prednisone burst. Discussed potential side effects and close monitoring of blood glucose while on prednisone. -CXR today. -Discussed warning signs of when to RTC including shortness of breath, wheezing, fatigue, or worsening cough. Follow up is in 1 month. CVA, old, aphasia 10/15/2014 Assessment & Plan (09/03/2023 1:06 AM LIMITED RADIOLOGY TECHNICIAN): - Residual expressive aphasia and some RSW - On rivaroxaban 2.5 for secondasry prevention per notes, holding for now Assessment & Plan (01/07/2019 6:27 PM CDT): Recommended follow-up with Neurology for expressive aphasia. Declined speech referral today. Assessment & Plan (08/27/2018 5:23 PM LIMITED RADIOLOGY TECHNICIAN): Pt has been out of his namenda. Discussed restarting and slowly titration up. Titration schedule written out and patient plan. Discussed with patient and his son Asymptomatic cerebrovascular disease 10/15/2014 Recurrent major depressive disorder, in partial remission 12/12/2013 Overview (11/01/2016): DEPRESSIVE DISORDER NEC Assessment & Plan (06/29/2024 3:54 PM LIMITED RADIOLOGY TECHNICIAN): -outpatient team were trying to taper Zoloft and start Cymbalta, continue Zoloft taper. -continue Wellbutrin and Remeron (though latter drug may be problematic given sedating effect) See polypharmacy for medications optimization as per Neurology recommendations. Assessment & Plan (06/28/2024 4:27 PM LIMITED RADIOLOGY TECHNICIAN): -outpatient team were trying to taper Zoloft and start Cymbalta, continue Zoloft taper. -continue Wellbutrin and Remeron (though latter drug may be problematic given sedating effect) See polypharmacy for medications optimization as per Neurology recommendations. Assessment & Plan (06/27/2024 4:58 PM LIMITED RADIOLOGY TECHNICIAN): -outpatient team were trying to taper Zoloft and start Cymbalta, continue Zoloft taper. -continue Wellbutrin and Remeron (though latter drug may be problematic given sedating effect) See polypharmacy for medications optimization as per Neurology recommendations. Assessment & Plan (06/26/2024 6:41 PM LIMITED RADIOLOGY TECHNICIAN): -outpatient team were trying to taper Zoloft and start Cymbalta, continue Zoloft taper. -continue Wellbutrin and Remeron (though latter drug may be problematic given sedating effect) See polypharmacy for medications optimization as per Neurology recommendations. Assessment & Plan (06/25/2024 6:45 PM LIMITED RADIOLOGY TECHNICIAN): -outpatient team were trying to taper Zoloft and start Cymbalta, continue Zoloft taper. -continue Wellbutrin and Remeron (though latter drug may be problematic given sedating effect) See polypharmacy for medications optimization as per Neurology recommendations. Assessment & Plan (06/25/2024 9:14 AM LIMITED RADIOLOGY TECHNICIAN): -outpatient team were trying to taper Zoloft and start Cymbalta, continue Zoloft taper. -continue Wellbutrin and Remeron (though latter drug may be problematic given sedating effect) See polypharmacy for medications optimization as per Neurology recommendations. Assessment & Plan (06/24/2024 8:43 AM LIMITED RADIOLOGY TECHNICIAN): -outpatient team were trying to taper Zoloft and start Cymbalta, continue Zoloft taper. -continue Wellbutrin and Remeron (though latter drug may be problematic given sedating effect) See polypharmacy for medications optimization as per Neurology recommendations. Assessment & Plan (09/03/2023 1:24 AM LIMITED RADIOLOGY TECHNICIAN): - Continue home sertraline 150. Per notes was to wean wellbutrin to 75 and then stop. Has not been taking meds for several days Assessment & Plan (05/27/2021 8:08 AM CDT): Recommend neuropsychology consultation considering his history of CVA and depression. Unclear if his mental status changes or due to his depression, worsening dementia or due to his CVA. fluoxetine 40 mg daily and Wellbutrin XR 150 mg daily Assessment & Plan (11/23/2020 2:26 PM CDT): Stable on fluoxetine 40 mg daily and Wellbutrin XR 150 mg daily Assessment & Plan (04/17/2019 6:41 PM CDT): Stable on fluoxetine 40 mg daily and Wellbutrin XR 150 mg daily Assessment & Plan (01/07/2019 6:27 PM CDT): Stable on fluoxetine 40 mg daily. Assessment & Plan (08/27/2018 5:22 PM LIMITED RADIOLOGY TECHNICIAN): Psychological condition is improving with treatment. Continue current treatment regimen. Regular aerobic exercise. Psychological condition will be reassessed at the next regular appointment. Continue Wellbutrin 300 mg daily and Prozac 40 mg daily Assessment & Plan (06/27/2018 3:49 PM LIMITED RADIOLOGY TECHNICIAN): Psychological condition is improving with treatment. Continue current treatment regimen. Regular aerobic exercise. Psychological condition will be reassessed at the next regular appointment. Continue Wellbutrin 300 mg daily and Prozac 40 mg daily Assessment & Plan (05/27/2018 9:14 AM CDT): Psychological condition is worsening. Medication changes per orders. Continue Wellbutrin XR 300 mg daily. Increase Prozac from 20 mg daily to 40 mg daily. Psychological condition will be reassessed at the next regular appointment. Assessment & Plan (09/26/2017 6:27 AM LIMITED RADIOLOGY TECHNICIAN): Psychological condition is uncontrolled. . Will increase bupropian XL to 300 mg daily. Psychological condition will be reassessed in 3 months. Coronary artery disease of n ative artery of [place] heart with stable angina pectoris 06/05/2012 Overview (11/01/2016): CAD (coronary artery disease) Assessment & Plan (01/05/2024 2:39 PM CDT): Has CAD s/p stenting -continue ezetimibe, pravastatin -plavix restarted post-operatively, continue -continue ASA Assessment & Plan (11/23/2020 2:21 PM CDT): Coronary artery disease is stable. Continue current treatment regimen. Dietary sodium restriction. Regular aerobic exercise. Continue current medications. continue regular follow up with Dr. Hernández Cardiac status will be reassessed in 3 months. Assessment & Plan (04/17/2019 6:40 PM CDT): Coronary artery disease is stable. Continue current treatment regimen. Dietary sodium restriction. Regular aerobic exercise. Continue current medications. continue regular follow up with Dr. Hernández Cardiac status will be reassessed in 3 months. Assessment & Plan (05/27/2018 9:11 AM CDT): Coronary artery disease is stable. Continue current treatment regimen. Dietary sodium restriction. Regular aerobic exercise. Continue current medications. continue regular follow up with Dr. Hernández Cardiac status will be reassessed in 1 month. Assessment & Plan (06/09/2017 6:23 PM LIMITED RADIOLOGY TECHNICIAN): Coronary artery disease is stable. . Continue current treatment regimen. Dietary sodium restriction. Weight loss. Regular aerobic exercise. Cardiac status will be reassessed in 3 months. Transient alteration of awareness Resolved Problems Problem Noted Date Diagnosed Date Resolved Date Disorientation 05/25/2019 11/23/2020 Elevated parathyroid hormone 05/02/2019 11/23/2020 Overview (11/23/2020): Repeat 05/01/2019 normal. Assessment & Plan (05/02/2019 10:00 AM CDT): Repeat today. Hyperparathyroidism 04/22/2019 05/04/20 19 Overview (05/04/2019): 04/22/2019 24 hour calcium and vitamin d ordered. 05/04/2019 repeat PTH normal. Assessment & Plan (05/02/2019 9:59 AM CDT): Repeat PTH today. Mildly elevated previously. If still elevated get vitamin d and urine calcium. Hypercalcemia 01/09/2019 06/29/2024 Overview (05/04/2019): 01/09/2019 PTH and ionized ca ordered 03/2019 mild elevation in PTH ionized ca normal. 05/04/2019 PTH on repeat was normal. Ca just slightly elevated. Assessment & Plan (06/29/2024 3:56 PM LIMITED RADIOLOGY TECHNICIAN): Possibly due to HCTZ, though would check intact PTH if recurs (especially now that HCTZ has been stopped). Assessment & Plan (06/28/2024 4:31 PM LIMITED RADIOLOGY TECHNICIAN): Possibly due to HCTZ, though would check intact PTH if recurs (especially now that HCTZ has been stopped). Assessment & Plan (04/17/2019 6:42 PM CDT): Repeat Ca and PTH today Bilateral carotid bruits 03/14/201806/2019 Chronic bilateral low back p ain with bilateral sciatica 07/03/2017 04/17/2019 Radiculopathy, lumbosacral region 07/03/2017 11/24/2024 Stenosis of carotid artery 11/28/2014 0 11/23/2020 Overview (11/01/2016): Carotid artery stenosis Assessment & Plan (05/02/2019 9:53 AM CDT): Recommend repeat carotid Doppler ultrasound. Assessment & Plan (08/27/2018 5:17 PM LIMITED RADIOLOGY TECHNICIAN): Encouraged follow-up with cardiovascular surgeon as previously referred by Dr. Hernández. Contact information given to patient and his son again today. Reinforced anti-platelet, adequate blood pressure control, cholesterol management to reduce risk for cardiovascular event including stroke Assessment & Plan (05/27/2018 9:16 AM CDT): See Plan above Assessment & Plan (03/07/2017 9:06 PM CDT): Last check was 10/2016. Currently on ASA 81mg daily. Occlusion of middle cerebral artery 11/28/2014 05/02/2019 Overview (11/01/2016): Middle cerebral artery occlusion Hyperlipidemia associated wi th type 2 diabetes mellitus 12/12/2013 09/03/2023 Overview (01/09/2019): 01/09/2019 stop Zetia, continue other medications repeat in 3 months. Assessment & Plan (11/23/2020 2:24 PM CDT): Lipid abnormalities are improving with treatment. Nutritional counseling was provided. and Pharmacotherapy as ordered. Continue statin and Repatha per Dr. Hernández last notes. Lipids will be reassessed in 3 months. Assessment & Plan (01/11/2020 1:49 PM CDT): Lipid abnormalities are improving with treatment. Nutritional counseling was provided. and Pharmacotherapy as ordered. Continue statin and alirocumab every 14 days Lipids will be reassessed in 3 months. Assessment & Plan (04/17/2019 6:42 PM CDT): Lipid abnormalities are improving with treatment. Nutritional counseling was provided. and Pharmacotherapy as ordered. Stop Zetia as previously discussed and repeat lipids in 3 months. Continue statin and alirocumab every 14 days Lipids will be reassessed in 3 months. Assessment & Plan (01/07/2019 6:29 PM CDT): Lipid abnormalities are Going to be assessed today. Nutritional counseling was provided. and Pharmacotherapy as ordered. Lipids will be reassessed in 3 months. Assessment & Plan (08/27/2018 5:21 PM LIMITED RADIOLOGY TECHNICIAN): Continue pravastatin 80 mg daily and Zetia 10 mg daily and alirocumab injections every 14 days. Continue care with Dr. Hernández Assessment & Plan (06/27/2018 3:48 PM LIMITED RADIOLOGY TECHNICIAN): Continue pravastatin 80 mg daily and Zetia 10 mg daily. Patient has not been taking alirocumab, discussed importance of treating hyperlipidemia to prevent further cardiovascular events. Assessment & Plan (05/27/2018 9:15 AM CDT): Lipid abnormalities are stable. Nutritional counseling was provided., Pharmacotherapy as ordered. and last lipid profile 12/2017 Lipids will be reassessed in 6 months. Assessment & Plan (01/19/2018 10:01 PM CDT): Lipid abnormalities are impred with current therapy. . Pharmacotherapy as ordered. Lipids will be reassessed today. Assessment & Plan (09/26/2017 6:24 AM LIMITED RADIOLOGY TECHNICIAN): Lipid abnormalities are well controlled. . Pharmacotherapy as ordered. Lipids will be reassessed today. Assessment & Plan (06/09/2017 6:22 PM LIMITED RADIOLOGY TECHNICIAN): Lipid abnormalities are well controlled. . Nutritional counseling was provided., Pharmacotherapy as ordered. and Would benefit with starting exercise regimen. Lipids will be reassessed in 3 months. Assessment & Plan (03/07/2017 9:05 PM CDT): Lipid abnormalities are improving with treatment. Pharmacotherapy as ordered. Lipids will be reassessed in 3 months. Encounters Date Type Department Care Team Description 04/09/2025 Telephone [facility] [address] [phone] Erlin Singh MD Medical Records Request 04/05/2025 Results Follow-Up [facility] [address] [phone] Yasmin Cortes MA SCAN - RADIOLOGY/IMAGING 03/26/2025 Telephone [facility] [address] [phone] Erlin Singh MD Medical Question/Miscellane ous 03/25/2025 Orders Only [facility] Health Information Management [address] [place] [id number] Erlin Singh MD 03/05/2025 Telephone [facility] [address] [place] [address] Shelli Pham NP 03/05/2025 Orders Only [facility] [address] [place] [address] Loser, Nancy, RMA Arthritis of both knees (Primary Dx); Arthralgia of both knees 03/05/2025 Telephone [facility] [address] [place] [address] Shelli Pham NP 03/02/2025 10:59 AM CDT - 03/02/2025 11:59 PM CDT Hospital Encounter [facility] [address] [facility] [address] [place] [address] Ivonne Toney NP Spinal stenosis of lumbar region without neurogenic claudication (Primary Dx); S/P cervical spinal fusion; Encounter for long-term use of opiate analgesic Discharge Disposition: Discharge to home or self care 03/02/2025 Telephone [facility] [address] [phone] Erlin Singh MD 02/16/2025 8:00 AM CDT Office Visit [facility] Stroke [facility] [address] [place] [phone] Gaetano Montanez MD PhD CVA, old, aphasia (Primary Dx); Follow-up exam; Expressive aphasia; Cognitive deficit S/P CVA (cerebrovascular accident); Aphasia following cerebral infarction; History of CVA with residual deficit; Depression, unspecified depression type; Cervicalgia; Urinary frequency; Hypertension, unspecified type; Hyperlipidemia associated with type 2 diabetes mellitus (HCC); At risk for falling; Polypharmacy 02/10/2025 8:00 AM CDT Office Visit [facility] Geriatric Medicine [address] [facility] 5[address] [place] [address] Cecelia Hernandez MD 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 Son tarun requests new palliative care referral to [facility]. ) 01/26/2025 Telephone [facility] Pall[facility] Care [address] [place] [address] Erlin Singh MD 01/20/2025 Telephone [facility] [address] [place] [address] Loser, Nancy, RMA 01/20/2025 Telephone [facility] [address] [place] [address] Loser, Nancy, RMA 01/19/2025 Telephone [facility] [address] [place] [address] Loser, Nancy, RMA 01/18/2025 Orders Only [facility] [address] [phone] Erlin Singh MD 01/13/2025 Telephone [facility] [address] [phone] Erlin Singh MD Medical Question/Miscellane ous 01/12/2025 10:30 AM CDT Office Visit [facility] Orthopa[facility] [address] [facility] [address] [place] [phone] Shelli Pham NP Arthritis of both knees (Primary Dx); Follow-up exam; Arthralgia of both knees 01/12/2025 Telephone [facility] Medicine Orthopaedic Surgery [address] [place] [address] Loser, RAF Cruz from Last 3 Months Immunizations Immunization Administration Dates Next Due Influenza, Quadrivalent, Spl it, Preservative Free, Intramuscular 06/30/2018,06/07/2017 Influenza, Trivalent, High D ose, Split, Preservative Free, Intramuscular 04/17/2019,04/24/2016 Influenza, Unspecified 07/09/2024(Deferr ed: Patient Refused),04/28/2024(Deferred: Patient Refused),02/14/2024(Deferred: Patient Refused),04/28/2023(Deferred: Patient Refused),04/28/2023(Deferred: Patient Refused),03/29/2023(Deferred: Patient Refused),02/01/2023(Deferred: Patient Refused),06/25/2022(Deferred: Allergy),04/28/2022(Deferred: Patient Refused),04/28/2022(Deferred: Patient Refused),04/28/2022(Deferred: Patient Refused),03/29/2022(Deferred: Patient Refused),07/29/2021(Deferred: Allergy),05/26/2021(Deferred: Patient Refused),04/28/2021(Deferred: Patient Refused),04/28/2020(Deferred: Patient Refused) Pfizer SARS-CoV-2 Monovalent Vaccination (12+ Yrs) PURPLE 06/09/2021,11/16/2020,10/19/2020 Pneumococcal Conjugate PCV 13 04/24/2016, 014 Pneumococcal Polysaccharide PPV23 01/02/2019 ZOSTER LIVE 05/08/2013 Surgical History Surgery Date Site/Laterality Comments CARPAL TUNNEL RELEASE 07/29/2005 - 07/28/2006 OTHER SURGICAL HISTORY Percutaneous transluminal balloon angioplasty with insertion of stent into coronary artery OTHER SURGICAL HISTORY Coronary artery disease: Cypher stent to distal LAD SHOULDER ARTHROSCOPY 07/29/2003 - 07/28/2004 Left CAROTID ENDARTERECTOMY 11/06/2018 Right [facility] 2 stents placed COLONOSCOPY unable to locate previous report pt states around 1989 CATARACT EXTRACTION VASCULAR SURGERY CERVICAL FUSION 12/26/2023 C2-T2 PCF/I, C3-T1 Lami, C4-5 Bilat Kylah, C5-6 R Kylah-Dr. Luis Fernando Arango CAROTID ARTERY ANGIOPLASTY Left Medical History Medical History Date Comments Chronic coronary artery disease 2004 Chronic obstructive pulmonar y disease ([facility]) Depression Hypertension Osteoarthritis Cerebrovascular accident (CVA) ([facility]) 09/04/2014 Carotid artery disease 06/01/2016 Bilateral carotid artery disease Cognitive deficit as late ef fect of cerebrovascular accident (CVA) 02/02/2016 Hyperlipidemia 10/15/2014 Gastroesophageal reflux dise ase without esophagitis 06/09/2017 Herniated lumbar intervertebral disc 11/29/2015 Prolapsed lumbar intervertebral disc Obstructive sleep apnea syndrome 2011 Occlusion of middle cerebral artery 11/28/2014 Type 2 diabetes mellitus wit h other specified complication 09/30/2017 H/O heart artery stent 2003 Obesity Myocardial infarct ([facility]) 2010 Mitral regurgitation 2013 Mild to mod erate Gout COPD mixed type ([facility]) Chronic bilateral low back p ain with bilateral sciatica 07/03/2017 Angina pectoris Infectious viral hepatitis Constipation Urinary incontinence Erectile dysfunction Cataract Mixed conductive and sensori neural hearing loss PAD (peripheral artery disease) Family History Medical History Relation Name Comments Coronary artery disease Father Azeem Song Duc nary artery disease; Cause of : Coronary artery disease Hearing loss Father Azeem Song Hyperlipidemia Father Azeem Song Hyperlipidemi a; Hypertension Father Azeem Song Hypertension; Vision loss Father Azeem Song Hypertension Mother Terra Song Hypertension; Ovarian cancer Mother Terra Song Cancer -ovari an; Breast cancer Sister 1 Cancer -breast ; Diabetes type II Sister 1 Diabetes type II Sister 2 Diabetes -T ype II; Relation Name Status Comments Father Azeem Song (Age 91) Mother Terra Song Sister 1 Sister 2 Social History Tobacco Use Types Packs/Day Years Used Date Smoking Tobacco: Former Cigarettes Q uit: 1962 Smokeless Tobacco: Never Tobacco Cessation:Counseling Given: Not Answered Alcohol Use Standard Drinks/Week Comments No 0 (1 standard drink = 0.6 oz pur e alcohol) OASIS D0700: Social Isolation Answer Da te Recorded Frequency of experiencing loneliness or isolatio n Never 05/01/2023 OASIS A1250: Transportation Answer Date Recorded Lack of Transportation (Medical) No 05/01/2023 Lack of Transportation (Non-Medical) No 05/01/2023 Patient Unable or Declines to Respond No 05/01/2023 OASIS B1300: Health Literacy Answer Kiran e Recorded Frequency of needing help to read materials from doctor or pharmacy Often 05/01/2023 Social Connection and Isolation Panel Answer Date Recorded In a typical week, how many times do you talk on the phone with family, friends, or neighbors? Once a week 11/25/2024 How often do you get together with friends or re latives? Once a week 11/25/2024 How often do you attend hindu or temple serv ices? Never 11/25/2024 Do you belong to any clubs o r organizations such as hindu groups, unions, fraternal or athletic groups, or school groups? No 11/25/2024 How often do you attend meet ings of the clubs or organizations you belong to? Never 11/25/2024 Are you , , di vorced, , never , or living with a partner? 11/25/2024 AUDIT-C Answer Date Recorded Q1: How often do you have a drink containing alcohol? Never 10/02/2024 Q2: How many drinks containi ng alcohol do you have on a typical day when you are drinking? Patient does not drink Q3: How often do you have si x or more drinks on one occasion? Never 10/02/2024 Overall Financial Resource Strain (CARDIA) Answe r Date Recorded How hard is it for you to pa y for the very basics like food, housing, medical care, and heating? Not very hard 11/25/2024 PHQ-2 Answer Date Recorded PHQ-2 Total Score (If total score is 3 or more points, staff should administer the PHQ-9) 6 03/02/2025 PRAPARE - Transportation Answer Date Re corded In the past 12 months, has l ack of transportation kept you from medical appointments or from getting medications? No 10/29 In the past 12 months, has l ack of transportation kept you from meetings, work, or from getting things needed for daily living? No 11/25/2024 Housing Stability Vital Sign Answer Kiran e Recorded In the last 12 months, was t here a time when you were not able to pay the mortgage or rent on time? No 02/13/2023 In the last 12 months, how many places have you lived? 1 02/13/2023 In the last 12 months, was t here a time when you did not have a steady place to sleep or slept in a assisted (including now)? No 02/13/2023 PHQ-9 Answer Date Recorded PHQ-9 Total Score 17 03/02/2025 Housing Stability Vital Sign Answer Kiran e Recorded In the last 12 months, was t here a time when you were not able to pay the mortgage or rent on time? No 11/25/2024 In the past 12 months, how m any times have you moved where you were living? 0 11/25/2024 At any time in the past 12 m [facility], were you homeless or living in a assisted (including now)? No 11/25/2024 Social Connection and Isolation Panel Answer Date Recorded In a typical week, how many times do you talk on the phone with family, friends, or neighbors? Once a week 03/23/2025 How often do you get togethe r with friends or relatives? More than three times a week 03/23/2025 How often do you attend chur ch or temple services? Never 03/23/2025 Do you belong to any clubs o r organizations such as hindu groups, unions, fraternal or athletic groups, or school groups? No 03/23/2025 How often do you attend meet ings of the clubs or organizations you belong to? Never 03/23/2025 Are you , , di vorced, , never , or living with a partner? 03/23/2025 Overall Financial Resource Strain (CARDIA) Answe r Date Recorded How hard is it for you to pa y for the very basics like food, housing, medical care, and heating? Not very hard 03/23/2025 [facility] [place] [facility] Occupat ional Health - Occupational Stress Questionnaire Answer Date Recorded Do you feel stress - tense, restless, nervous, or anxious, or unable to sleep at night because your mind is troubled all the time - these days? Only a little 03/23/2025 Hunger Vital Sign Answer Date Recorded Within the past 12 months, y ou worried that your food would run out before you got the money to buy more. Never true 03/23/20 25 Within the past 12 months, t he food you bought just didn't last and you didn't have money to get more. Never true 03/23/2025 PRAPARE - Transportation Answer Date Re corded In the past 12 months, has l ack of transportation kept you from medical appointments or from getting medications? No 02/27 In the past 12 months, has l ack of transportation kept you from meetings, work, or from getting things needed for daily living? No 03/23/2025 Housing Stability Vital Sign Answer Kiran e Recorded In the last 12 months, was t here a time when you were not able to pay the mortgage or rent on time? No 03/23/2025 In the past 12 months, how m any times have you moved where you were living? 0 03/23/2025 At any time in the past 12 m [facility], were you homeless or living in a assisted (including now)? No 03/23/2025 [facility] Utilities Answer Date Recorded In the past 12 months has th e electric, gas, oil, or water company threatened to shut off services in your home? No 03/23/2025 Personal Safety Answer Date Recorded Have you ever been in or are you currently in a harmful physical or emotional relationship or is someone making you feel afraid or unsafe? Denies 11/24/2024 Education Answer Date Recorded What is the highest level of school you have completed or the highest degree you have received? Associate degree: academic program 02/13/2023 Sex and Gender Information Value Date Recorded Sex Assigned at Not on file Legal Sex Male 12:47 PM LIMITED RADIOLOGY TECHNICIAN Gender Identity Not on file Sexual Orientation Straight 01/28/2019 4: 07 PM CDT Occupation Industry Job Start Date Job End Date retired Not on file Not on file Not on file Obstetrics History Last Filed Vital Signs Vital Sign Reading Time Taken Comments Blood Pressure 130/80 03/02/2025 11:33 AM CDT Pulse 110 03/02/2025 11:33 AM CDT Temperature 36.6 C (97.8 F) 02/10/2025 8:23 AM CDT Respiratory Rate 17 03/02/2025 11:33 AM CDT Oxygen Saturation 97% 03/02/2025 11:33 AM CDT Inhaled Oxygen Concentration - - Weight 86.2 kg (190 lb) 02/26/2025 2:27 PM CDT Height 175.3 cm (5' 9) 02/26/2025 2:27 PM CDT Body Mass Index 28.06 02/26/2025 2:27 PM CDT Plan of Treatment Health Maintenance Due Date Last Done Comments DTaP/Tdap/Td Vaccine (1 - Tdap) 1956 Hepatitis B Screening 1962 Lung Cancer Screening 1994 Zoster Vaccine (2 of 3) 07/03/2013 05/08/2013 Covid-19 Vaccine (4 - 2024-2 6 season) 2025 06/09/2021, 11/16/2020, 10/19/2020 Influenza Vaccine (#1) 2025 9, 06/30/2018, 06/07/2017, Additional history exists Foot Exam 03/31/2025 03/31/2024, 03/30, 11/11/2017 Well Visit 65+ 03/31/2025 03/31/2024, 01/17/2023 Albumin Creatinine Ratio, Urine 04/07/2025 04/07/2024, 01/24/2023, 07/25/2021 Hemoglobin A1C 06/03/2025 12/01/2024, 05/29, 12/17/2023, Additional history exists Fall Risk Assessment 12/01/2025 12/01/2024, 11/24/2024, 07/10/2024, Additional history exists Lipid Panel 12/24/2025 12/24/2024, 0511/2024, 10/22/2024, Additional history exists eGFR 01/01/2026 01/01/2025, 06/30, 07/09/2024, Additional history exists Depression Screening 03/02/2026 03/02/2025, 12/01/2024, 08/12/2024, Additional history exists Dilated Eye Exam 04/03/2026 04/03/2024, 12/13/2021 Pneumococcal vaccine 65+ Completed 019, 04/24/2016, 05/14/2014 Colon Cancer Screening-CT Colonography Discontinued 03/21/2020, 09/30/2003 Colon Cancer Screening-Colonoscopy Discontinued 03/21/2020, 09/30/2003 Colon Cancer Screening-DNA Stool Discontinued 03/21/20 20, 09/30/2003 Colon Cancer Screening-FIT Discontinued 03/21/2020, Colon Cancer Screening-FOBT Discontinued 03/21/2020, 0 09/30/2003 Colon Cancer Screening-Sigmoidoscopy Discontinued 03/21/2020, 09/30/2003 Colorectal Cancer Screening Discontinued Abdominal Aortic Aneurysm (A AA) Screen Completed 12/31/2024, 12/28/2024, 04/08/2024, Additional history exists Goals Goal Patient Goal Type Associated Problems Recent Progress Patient-Stated? Author ACO SW Goal - Patient can identify and utilize needed community resources ACO Care Management Corrina Green, ELECTRIC SHAVER MECHANIC Note: Problem: Need for Community Resources Interventions: - Provide patient/family with a list of appropriate resources for their specific need. - Help to coordinate resources. - Follow up to ensure patient/family has connected with the appropriate resources / personnel. Medical Devices Implanted Type Area Battery Stacker Device Identifier Shelf Expiration Date Model / Serial / Lot Stent Implanted:Qty: 2 Stent Heart [employer] Device Vascular Closure Femoral Artery Bioabsorbable Dual Method Vascade 6-7fr Collagen [id number] - [id number] Implanted:Qty: 1 on 07/04/2023 by Sajan Lang MD at [facility] [employer] 03/07/2025 [id number] / / [id number] Access Closure Inc Mynx Control 6-7fr 2 Mode Balloon Catheter Sealant Lock Syringe [id number] - [id number] Implanted:Qty: 1 on 11/15/2023 by Sajan Lang MD at [facility] [employer] 05/28/2024 [id number] / / [id number] All[employer]ource Crushed Fresh Frozen Cancellous 1-4mm Graft 15ml Bone [id number] - [id number] Implanted:Qty: 1 on 12/26/2023 by Luis Fernando Arango MD at [facility] N/A: Spine Cervical [employer] 02/26/2028 [id number] / / [id number] [employer] Screw Spine Reline C Lock Open Non-Sterile Latex Free [id number] - [id number] Implanted:Qty: 14 on 12/26/2023 by Luis Fernando Arango MD at [facility] N/A: Spine Cervical [employer] [id number] / / [employer] Screw Spinal Posterior Cervical Solid Reline C 3.5x14mm [id number] - [id number] Implanted:Qty: 8 on 12/26/2023 by Luis Fernando Arango MD at [facility] N/A: Spine Cervical [employer] [id number] / / [employer] Screw Spine Reline C Ma 3.5x18mm Non-Sterile Latex Free [id number] - [id number] Implanted:Qty: 2 on 12/26/2023 by Luis Fernando Arango MD at [facility] N/A: Spine Cervical [employer] [id number] / / [employer] Screw Spinal Posterior Cervical Solid Reline 4.5x24mm Titanium [id number] - [id number] Implanted:Qty: 2 on 12/26/2023 by Luis Fernando Arango MD at [facility] N/A: Spine Cervical [employer] [id number] / / [employer] Screw Spinal Posterior Cervical Solid Reline 5.0x25mm [id number] - [id number] Implanted:Qty: 2 on 12/26/2023 by Luis Fernando Arango MD at [facility] N/A: Spine Cervical [employer] [id number] / / [employer] Inc Reese Spinal Posterior Cervical Prebent Reline 4.4z008al Titanium [id number] - [id number] Implanted:Qty: 2 on 12/26/2023 by Luis Fernando Arango MD at [facility] N/A: Spine Cervical [employer] [id number] / / Procedures Procedure Name Priority Date/Time Associated Diagnosis Comments SCAN - RADIOLOGY/IMAGING 03/25/2025 EGFR Routine 01/01/2025 3:[address] ABDOMEN 3 PHASE AND PELVIS WITH CONTRAST Schedule Routine, Read Routine (OP Routine) 12/31/2024 4:30 PM CDT POCT HEMOGLOBIN A1C Routine 12/01/2024 1:00 PM CDT 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 73 m2 Comment: Interpretive Data Reference Interval Normal >/= 90 mL/min/1.73m2 Mildly decreased* 60 - 89 mL/min/1.73m2 Mildly to moderately decreased 45 - 59 mL/min/1.73m2 Moderately to severely decreased 30 - 44 mL/min/1.73m2 Severely decreased 15 - 29 mL/min/1.73m2 Kidney Failure < 15 mL/min/1.73m2 *Relative to young adult level Estimated glomerular filtration rate is determined by the 2020 CKD-EPI equation recommended by the National Kidney Foundation (A Unifying Approach to GFR Estimation: Recommendations of the NKF-ASK Task Force on Reassessing the Inclusion of Race in Diagnosing Kidney Disease, JASN 2020). The CKD-EPI equation should not be used for patients with unstable renal function and has not been validated in children and those over 70. Current interpretive data was last reviewed 2021. Testing performed by: [facility], [address] [place] [address], [place]., [address] Blood 01/01/2025 3:48 PM CDT 01/01/2025 8:23 PM CDT Notinfile Unknown LAB BLOOD ORDERABLES Final Res ult EVA NAPIER ([place]) 1 [facility] Department [place] [address] * CT Abdomen 3 Phase and Pelvis W Contrast (12/31/2024 4:30 PM CDT) Anatomical Region Laterality Modality Body N/A Computed Tomogra phy Historical Provider IMG CT PROCEDURES Edited Result - Final * (ABNORMAL) POCT hemoglobin A1c (12/01/2024 1:00 PM CDT) Hemoglobin A1C, POC 6.7(A) 4.0 - 5.6 % Capillary blood 12/01/2024 1 :00 PM CDT Rubina Rao NP POINT OF CARE TEST ORDERABL ES Final Result * POCT lipid panel (11/30/2024 12:41 PM CDT) Cholesterol, POC 100 <200 MG/DL HDL, POC 49 >=40 mg/dL Triglycerides, POC 131 <=149 mg/dL LDL Cholesterol POC 24.8 <=129 mg/dL Chol/HDL Ratio, POC 0 NONE Non-HDL Cholesterol, POC 0 NONE mg/dL Cholesterol Total, POC 100 30 - 199 mg/dL Capillary blood 11/30/2024 1 2:41 PM CDT Tarun Hernández MD POINT OF CARE TEST ORDERA BLES Final Result * Albumin Creatinine Ratio, Urine (04/07/2024 4:21 PM CDT) Albumin Ur <12.0 mg/L Comment: Interpretive Data No reference range established. Current interpretive data was last revised 2018. Creatinine Ur 46.3 mg/dL [facility] Comment: Interpretive Data No reference range established. Current interpretive data was last revised 2018. Albumin Creatinine Ratio, Ur <26 1 - 29 mg/g [facility] Urine 04/07/2024 4:21 PM CDT 04/07/2024 9:35 PM CDT Ceci Nichole RADIAL DRILL PRESS SET UP OPERATOR LAB URINE ORDERABLES Final Result [facility] [address] [address] Department of Laboratories [place], [place] [id number] * HM DIABETES EYE EXAM (04/03/2024 3:40 PM CDT) Historical Provider HEALTH MAINTENANCE Edited Result - Final * COLONOSCOPY (03/21/2020 9:23 AM CDT) Anatomical Region Laterality Modality Other Narrative Procedure Note Jonathan Kohli MD - 03/21/2020 9:23 AM CDT [facility] Patient Name: Azeem Song Procedure Date: 03/21/2020 9:23 AM Date of : 1945 Admit Type: Outpatient Age: 74 Gender: Male Note Status: Finalized Attending MD: Jonathan Kohli M.D. Procedure Date: 03/21/2020 Procedure: Colonoscopy Indications: Screening for colorectal malignant neoplasm, Last colonoscopy: 2003 Providers: Jonathan Kohli M.D., Deandra Aragon CRNA (Anesthesia Staff), Kaur Saenz RN Referring MD: Dipak Garza Medicines: Monitored Anesthesia Care Complications: No immediate complications. Estimated Blood Loss: Estimated blood loss was minimal. Procedure: Pre-Anesthesia Assessment: - Prior to the procedure, a History and Physical was performed, and patient medications and allergieswere reviewed. The patient is competent. The risks and benefits of the procedure and the sedation optionsand risks were discussed with the patient. All questions were answered and informed consent was obtained. Patient identification and proposed procedure were verified by the physician, the nurse and the as400 analyst in the procedure room. Mental Status Examination: alert and oriented. Airway Examination: normal oropharyngeal airway and neck mobility. Respiratory Examination: clear to auscultation. CV Examination: normal. Prophylactic Antibiotics: The patient does not require prophylactic antibiotics. Prior Anticoagulants: The patient has taken Plavix (clopidogrel), last dose was 1 day prior toprocedure. ASA Grade Assessment: III - A patient with severe systemic disease. After reviewing the risks and benefits, the patient was deemed in satisfactory condition to undergo the procedure. The anesthesiaplan was to use monitored anesthesia care (MAC).Immediately prior to administration of medications, the patientwas re-assessed for adequacy to receive sedatives. The heart rate, respiratory rate, oxygen saturations,blood pressure, adequacy of pulmonary ventilation, and response to care were monitored throughout the procedure. The physical status of the patient was re-assessed after the procedure. - The risks and benefits of the procedure and the sedation options and risks were discussed with the patient. All questions were answered and informed consent was obtained. After I obtained informed consent, the scope waspassed under direct vision. Throughout the procedure, the patient's blood pressure, pulse, and oxygensaturations were monitored continuously. The scope was passedunder direct vision. The Colonoscope was introducedthrough the anus and advanced to the the cecum, identifiedby appendiceal orifice and ileocecal valve. The colonoscopy was performed without difficulty. The patient tolerated the procedure well. The quality of the bowel preparation was adequate. The bowel preparation used was SUPREP. Bowel prep was administered using a split dose. Findings: A 4 mm polyp was found in the ascending colon. The polyp was sessile. The polyp was removed with a hot biopsy forceps. Resection andretrieval were complete. Estimated blood loss was minimal. Multiple small-mouthed diverticula were found in the sigmoid colon. Non-bleeding internal hemorrhoids were found during retroflexion. The hemorrhoids were mild. The exam was otherwise without abnormality. Impression: - One 4 mm polyp in the ascending colon. Resectedand retrieved. - Diverticulosis in the sigmoid colon. - Non-bleeding internal hemorrhoids. - The examination was otherwise normal. Recommendation: - Await pathology results. - High fiber diet. - Repeat colonoscopy is not recommended. Procedure Code(s): --- Professional --- 45618, Colonoscopy, flexible; with removal oftumor(s), polyp(s), or other lesion(s) by hot biopsy forceps Diagnosis Code(s): --- Professional --- Z12.11, Encounter for screening for malignantneoplasm of colon D12.2, Benign neoplasm of ascending colon K64.8, Other hemorrhoids K57.30, Diverticulosis of large intestine without perforation or abscess without bleeding CPT copyright 2017 [employer]. All rights reserved. The codes documented in this report are preliminary and upon animal caregiver reviewmay be revised to meet current compliance requirements. Electronically signed by Jonathan Kohli M.D. Jonathan Kohli M.D. 03/21/2020 9:53:51 AM Number of Addenda: 0 Note Initiated On: 03/21/2020 9:23 AM Jonathan Kohli MD ENDOSCOPY PROCEDURES Fi nal Result from Last 3 Months or Most Recently Relevant to Health Maintenance Insurance T MEDICARE Member Subscriber Plan / Payer (Ef fective 2022-Present) Name:Azeem Song Relation to Subscriber:Self Name:Azeem Song Payer ID:[id number] (NA) Type:AETNA MEDICARE Address: [place] [phone] AET MEDICARE AET MEDICARE Advance Directives For more information, please contact: [phone] Documents on File Type Date Recorded Patient Nutrition Partner Expl anation ADVANCE DIRECTIVE 02/14/2023 3:19 PM Tarun Antonio r of Director Metabolism-Medical * Full Code (Latest Code Status on File) Date Activated Date Inactivated Comments 06/12/2024 4:54 AM 06/29/2024 9:14 PM * Full Code Date Activated Date Inactivated Comments 03/14/2024 8:12 AM 03/16/2024 8:41 PM * Full Code Date Activated Date Inactivated Comments 12/26/2023 8:56 PM 01/09/2024 3:25 PM * Full Code Date Activated Date Inactivated Comments 09/03/2023 12:32 PM 09/04/2023 1:06 AM * Full Code Date Activated Date Inactivated Comments 04/17/2019 10:28 PM 04/19/2019 7:28 PM Healthcare Agents on File Name Relationship Healthcare Agent [facility] Communication Tarun Song [facility] Health Care Agent [email or web address] Care Teams Internal Combustion Engine Assembler Relationship Specialty Start Date End Date Erlin Singh MD [address] [place] [address] PCP - General Family Medicine 01/17/22 Princess Dixon, RN Registered Nurse 09/03/17 Tarun Hernández MD [address] [facility] [address] [facility], [facility] [address] [place] [address] Consulting Physician Cardiology 05/23/18 Virginie Hansen MD [address] [place] [address] Consulting Physician Neurology 06/24/18 Xavier Mayer MD [address] [place] [address] Consulting Physician Neurology 06/03/19 Xavier Joel MD [address] [place] [address] Consulting Physician Pulmonary Disease 01/11/20 Genaro Galan MD [address] [facility] [address] [place] [address] Consulting Physician Pain Management 07/18/21 Ceci Guardado RN [address] [place] [address] [facility] [address] [place] [address] Wet And Dry Sugar Bin Operator 06/30/24 Anette Newby NP [address] [facility] [address] [place] [address] Nurse Practitioner Hospice and Palliative Medicine 07/20/24 Corrina Brush, ELECTRIC SHAVER MECHANIC Flight Communications Operator 03/22/25
--- OUTSIDE RECORDS SUMMARY | 2025-04-12 17:23 | XMS_ITS | Clinical Summary ---
Author Organization [facility] Care Team Providers Care Aviation Mechanic Name Role Phone Unavailable Primary Care Provider Unavailabl e Social History Tobacco Use Types Packs/Day Years Used Date Smoking Tobacco: Never Assessed Sex and Gender Information Value Date Recorded Sex Assigned at Not on file Legal Sex Male 9:15 PM CDT Gender Identity Not on file Sexual Orientation Not on file Plan of Treatment Health Maintenance Due Date Last Done Comments Hepatitis C Virus (HCV) Screening 1945 TdaP Immunization 1945 Zoster Immunization (2 of 3) 07/03/2013 05/08/2013 Respiratory Syncytial Virus (RSV) Immunization (Adult) (1 - 1-dose 75+ series) 2019 Influenza Immunization (#1) 03/29/202503/30, 06/30/2018, 06/07/2017, Additional history exists SARS-COV-2 Immunization ( season) 2025 06/09/2021, 11/16/2020, 10/19/2020 Pneumococcal Immunization (50+ years) Completed 01/02/2019, 04/24/2016, 05/14/2014 Hepatitis B Immunization Aged Out No longer eligible based on patient's age to complete this topic Human Papillomavirus (HPV) Immunization Aged Out No longer eligible based on patient's age to complete this topic Meningococcal Immunization (ACWY) Aged Out No longer eligible based on patient's age to complete this topic Rotavirus Immunization Aged Out No lo nger eligible based on patient's age to complete this topic
--- OUTSIDE RECORDS SUMMARY | 2025-04-12 17:23 | XMS_ITS | Encounter Summary ---
Author Organization [facility] Health Address [address] [place] [address] Care Team Providers Care Human Factors Advisor Lead Name Role Phone Kassandra Torres Primary Care Provid er Unavailable Erlin Singh MD Primary Care Provider [phone] Encounter Details Date Type Department Care Team (Late st Contact Info) Description 10/16/2018 [facility] Outpatient Visit [facility] [address] [place] [address] [place] [address] [address] Social History Tobacco Use Types Packs/Day Years Used Date Smoking Tobacco: Former Cigarettes Q uit: 2010 Smokeless Tobacco: Never Alcohol Use Standard Drinks/Week Comments No 0 (1 standard drink = 0.6 oz pur e alcohol) Sex and Gender Information Value Date Recorded Sex Assigned at Not on file Legal Sex Male 3:31 PM CDT Gender Identity Not on file Sexual Orientation Not on file documented as of this encounter Plan of Treatment Not on file documented as of this encounter Visit Diagnoses Not on filedocumented in this encounter Care Teams Human Factors Advisor Lead Relationship Specialty Start Date End Date Kassandra Torres APRN-CNP PCP - General Nurse Practitioner Family 10/06/18 08/06/23 Erlin [place] [address] [place] [address] PCP - General Internal Medicine 08/07/23 documented as of this encounter
--- OUTSIDE RECORDS SUMMARY | 2025-04-12 17:23 | XMS_ITS | Encounter Summary ---
Author Organization [facility] Address [address] [place] [address] Phone Care Team Providers Care Manager Of Corporate Name Role Phone Unavailable Primary Care Provider Unavailabl e Encounter Details Date Type Department Care Team (Late st Contact Info) Description 02/22/2023 Nursing Facility [facility] [address] [place] [address] Charito Floyd MD [address] [place] [address] Social History Tobacco Use Types Packs/Day Years Used Date Smoking Tobacco: Never Assessed Sex and Gender Information Value Date Recorded Sex Assigned at Not on file Legal Sex Male 9:15 PM CDT Gender Identity Not on file Sexual Orientation Not on file documented as of this encounter H&P Notes * Swpanil Burnham - 02/22/2023 11:59 PM CDT [facility] Custodial History and Physical Chief Complaint: Sepsis, left knee cellulitis, pneumonitis HPI: Azeem Song is a 77 y.o. male who has transferred to [facility] for post-acute care and rehabilitation. Prior to coming to rehabilitation facility patient was hospitalized at [facility] from 02/12/23 to 02/21/23 for generalized weakness and was found to have sepsis secondary to cellulitis of left lower extremity in addition to aspiration pneumonitis with possible pneumonia. Patient was treated with antibiotics during hospitalization and has come to the facility for rehab and wound care before returning home where he lives with his son. At the time of this assessment, the patient complained of neck pain. He reported good appetite and regular bowel movements. His son was present during the assessment. History obtained from: patient, medical records Review of Prior External Notes: [facility] records Allergies: Atorvastatin, influenza virus vaccines, simvastatin, njqwiva-Fle-Apy reductase inhibitors Past Medical History: CAD, HLD, hx of CVA, COPD, T2DM, HTN, gout, depression, Alzheimer's dementia Surgical History: Carotid endarterectomy, cardiac stent placement, carpal tunnel release, colonoscopy, shoulder arthroscopy Social History: Denies current use of tobacco, alcohol, and illicit drugs. Former smoker, quit in 2010. Lives with son. Physical Exam: Vital Signs: All vitals were reviewed in the facility EMR and are stable. Exam: General: Well developed, well nourished, in no distress, sitting in wheelchair Skin: Normal appearance, normal turgor, no rashes, onychomycosis of toenails, LLE cellulitis has improved HEENT: Normocephalic, atraumatic, no flaring, missing multiple teeth with multiple broken roots Eyes: nonicteric, intact extra occular movement, PERRL, mild bilateral cataracts Neck: normal, supple, no lymphadenopathy Heart: regular rate and rhythm, S1, S2 normal, no murmur, click, rub or gallop Lungs: clear to ausculation, normal respirations, normal precautions, right base slightly dull to percussion Abdominal: soft, non-tender; bowel sounds normal; no masses, no organomegaly : external genitalia normal in appearance Extremities: no deformities, joint mobility appears intact, no clubbing Neuro: Non-focal, CN intact, sensory and motor intact Psychological: alert and oriented X3, appropriate mood and affect, Intact judgement and memory Data Review: Lab Results: Labs from recent hospitalization have been reviewed and are stable. Imaging: No new imaging. Orders: - Apply Voltaren gel to neck for pain control up to 4 x per day Assessment/Plan: 1. Left knee cellulitis. Sepsis component resolved during hospital course. Patient was initially started on IV Rocephin during hospital course and is to complete antibiotic treatment with po doxycyline at the SNF. Improved. Receiving wound care at the SNF. 2. Aspiration pneumonitis/ suspected pneumonia. CT chest revealed aspiration pneumonitis. CXR whichbilateral opacities, with some concern for consolidation. MRSA nares noted to be positive. Started on vancomycin empirically then switched to Iv Unasyn. MOTION DESIGNER recommended mechanical soft diet. Patient has now advanced to regular diet. 3. Hx of CVA. No lasting neurological deficits. Continue statin therapy and dual antiplatelet therapy with aspirin and Plavix. 4. Alzheimer's Dementia. Mild. Continue Namenda and supportive care. Patient lives with son at home. 5. CAD. S/p stent placement. Continue statin therapy and dual antiplatelet therapy with aspirin andPlavix. 6. COPD. No acute respiratory distress. Quit smoking in 2010. Continue PRN inhaler for wheezing. 7. Depression. The patient's mood currently appears stable and no reported psychological distress at this time. Continue management with Wellbutrin and Prozac. 8. Hypertension. BP stable. Continue management with metoprolol and HCTZ. Monitor vital signs whileat the SNF. 9. Hyperlipidemia. Stable. Continue Zetia and statin therapy with pravastatin. Check lipid panel periodically. 10. Hx of gout. No acute gouty arthritis. Not currently on medication. 11. Diabetes Mellitus Type 2. Well-controlled without long-term insulin use. Continue management with oral metformin and Jardiance. Patient has been encouraged to continue following a diabetic diet. Check A1c periodically as outpatient. 12. Generalized weakness and decreased mobilization. The patient is to receive PT and OT at the SNFto improve strength, balance, and mobility back to baseline. 13. Neck pain. SNF staff to Apply Voltaren gel to neck for pain control up to 4 x per day VTE Prophylaxis: Mobilization Fall Care Plan Review: Patient has been educated on fall precautions and will be closely monitored. Pressure Ulcer Prevention Plan: Mobilization. and Gel foam preventative dressing. Disposition and escalation or reduction of care: The patient is to receive post- acute care and complete PT and OT at the SNF to improve strength, balance, and mobility back to baseline with the goal of discharging to home where he lives with his son. Advance Care Planning: Aggregate [id number] time, greater than 16 minutes was spent discussing end-of-life care planning with patient/family and/or Power of Bakery Technician. Discussed CPR, Intubation, treatment goals, and Quality of life/Intensity of care. Patient desires CPR-Full Treatment Polst Form Completed. Swapnil Obando, acting as a scribe, am personally taking down the notes in the presence of Dr. Charito Floyd M.D. Take no action on this note until reviewed and authenticated by the physician. By: SWAPNIL BURNHAM, 02/22/2023 I evaluated and examined the patient in presence of scribrufina Burnham and reviewed the medical records and the notes above and agree with the content and details of the notes. By: Charito Floyd M.D.. Cosigned by Charito Floyd MD at 05/13/2023 12:16 AM CDT documented in this encounter Plan of Treatment Not on file documented as of this encounter Visit Diagnoses Not on filedocumented in this encounter
--- OUTSIDE RECORDS SUMMARY | 2025-04-12 17:23 | XMS_ITS | Continuity of Care Document ---
Author Organization [facility] - Main Address [address] [place] [address] Insurance Providers Payer Plan Claims Address Claims Phone Policy Number Group Number Relation Employer Guarantor Name Guarantor Guarantor Address Guarantor Phone [employer] [address], [place] [address] tel:[phone] Self Azeem Song [address] [place], [place] [id number] [employer] [address], [place] [address] tel:[phone] Self Azeem Song [address] [place] [address] [employer] [address], [place] [address] tel:[phone] Self Azeem Song [address] [place] [address] [id number] Problems Condition ICD9 code ICD10 code SNOMED code Start Date End Date S tatus Weakness R53.1 Working Other cervical disc degeneration, unspecified cervical region M50.30 Working Spondylosis without myelopathy or radiculopathy, lumbosacral region M47.817 Workin g Peripheral vascular disease, unspecified I73.9 Work ing Other spondylosis with myelopathy, 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 Working Vitamin D deficiency, unspecified E55.9 Working Encounter for other preprocedural examination Z01.818 Working Type 2 diabetes mellitus with other specified complication E11.69 Working Personal history of transient ischemic attack (TIA), and cerebral infarction without residual deficits Z86.73 Working Disorientation, unspecified R41.0 Working Aphasia R47.01 Working Hyperlipidemia, unspecified E78.5 Working Atherosclerotic heart disease of [place] coronary artery with other forms of angina pectoris I25.118 Working Arthrodesis status Z98.1 Worki ng Disease of spinal cord, unspecified G95.9 Working Unspecified injury of head, initial encounter S09.90XA W orking Cervicalgia M54.2 Working Type 2 diabetes mellitus with unspecified complications E11.8 Working Unspecified fall, initial encounter W19.XXXA Working Laceration without foreign body of scalp, initial encounter S01.01XA Working Results No Results Allergies, adverse reactions, alerts No known allergies and adverse reactions Medications No administered medications reported Vital Signs No vital signs reported Social History No smoking Hx information available
--- OUTSIDE RECORDS SUMMARY | 2025-04-12 17:23 | XMS_ITS | Clinical Summary ---
Author Organization [facility] Address [address] [place] [address] Care Team Providers Care Data Developer Name Role Phone Erlin Singh MD Primary Care Provider [phone] Lorie Randall MD Unavailable [phone] Allergies Active Allergy Reactions Criticality Noted Date Comments Influenza Virus Vaccine Unknown 10/21/2024 Medications pravastatin (PRAVACHOL) 40 MG tablet Take 1 tablet (40 mg total) by mouth daily. 06/10/2024 Active rivaroxaban (XARELTO) 2.5 MG tablet Take 1 tablet (2.5 mg total) by mouth 2 (two) times daily. 01/08/2024 Active DULoxetine (CYMBALTA) 60 MG capsule Take 1 capsule (60 mg total) by mouth daily. 06/10/2024 Active vitamin D2, ergocalciferol, (DRISDOL) 1.25 mg capsule Take 1 capsule (1.25 mg total) by mouth every 7 days. On Mondays Active memantine (NAMENDA) 10 MG tablet Take 1 tablet (10 mg total) by mouth 2 (two) times daily. Active buPROPion XL (WELLBUTRIN XL) 300 MG 24 hr tablet Take 1 tablet (300 mg total) by mouth daily. Active cilostazol (PLETAL) 50 MG tablet Take 1 tablet (50 mg total) by mouth 2 (two) times daily. Active donepezil (ARICEPT) 5 MG Tab Take 1 tablet (5 mg total) by mouth nightly at bedtime. Active ezetimibe (ZETIA) 10 MG tablet Take 1 tablet (10 mg total) by mouth daily. Active oxyCODONE-aceta minophen (PERCOCET) 5-325 MG tablet Take 1 tablet by mouth 3 (three) times daily as needed for Pain. Active fish oil (OMEGA-3 FATTY ACID) 1000 MG Cap capsule Take 1 capsule (1,000 mg total) by mouth daily. Active vitamin C (ASCORBIC ACID) 1000 MG tablet Take 2 tablets (2,000 mg total) by mouth daily. Active Ginkgo Biloba (GINKOBA OR) Take 1 tablet by mouth daily. Active losartan (COZAAR) 50 MG tablet Take 1 tablet (50 mg total) by mouth daily. 30 tablet 12/25/2024 Active fluticasone furoate-vilante rol (BREO ELLIPTA) 100-25 MCG/ACT inhalerIndicati ons:Chronic cough Inhale 1 puff into the lungs daily. Rinse and spit after use 30 each 3 02/15/2025 Active Active Problems Problem Noted Date Diagnosed Date Carotid stenosis, left 10/26/2024 Lobar pneumonia 10/22/2024 Pneumonia 10/21/2024 Weakness 10/21/2024 Resolved Problems Problem Noted Date Diagnosed Date Resolved Date AMS (altered mental status) 12/23/2024 12/24/2024 Encounters Date Type Department Care Team Description 03/25/2025 10:00 AM T Hospital Encounter [facility] [place] [address] Erlin Singh MD Lake, Laura E, EXTRUDING DEPARTMENT SUPERVISOR Discharge Disposition: Home or Self Care (Routine Discharge) 03/25/2025 10:00 AM CDT Hospital Encounter [facility] [place] [address] Gil Garibay MD Discharge Disposition: Home or Self Care (Routine Discharge) 03/25/2025 Travel 02/15/2025 11:20 AM CDT Telemedicine [facility] Multispecialty Care - [address], [address] [place] [id number] Gil Garibay MD Cough 02/15/2025 Travel from Last 3 Months Social History Tobacco Use Types Packs/Day Years Used Date Smoking Tobacco: Never Smokeless Tobacco: Never Tobacco Cessation:Counseling Given: No Alcohol Use Standard Drinks/Week Comments Not Currently 0 (1 standard drink = 0.6 oz pur e alcohol) [facility] Utilities Answer Date Recorded In the past 12 months has th e electric, gas, oil, or water company threatened to shut off services in your home? No 12/23/2024 Humiliation, Afraid, Rape, and Kick questionnair e Answer Date Recorded Within the last year, have y ou been afraid of your partner or ex-partner? No 12/23/2024 Within the last year, have y ou been humiliated or emotionally abused in other ways by your partner or ex-partner? No Within the last year, have y ou been kicked, hit, slapped, or otherwise physically hurt by your partner or ex-partner? No 12/23/2024 Within the last year, have y ou been raped or forced to have any kind of sexual activity by your partner or ex-partner? No 12/23/2024 Overall Financial Resource Strain (CARDIA) Answe r Date Recorded How hard is it for you to pa y for the very basics like food, housing, medical care, and heating? Not hard at all 12/23/2024 Hunger Vital Sign Answer Date Recorded Within the past 12 months, y ou worried that your food would run out before you got the money to buy more. Never true 12/24/19 25 Within the past 12 months, t he food you bought just didn't last and you didn't have money to get more. Never true 12/23/2024 PRAPARE - Transportation Answer Date Re corded In the past 12 months, has l ack of transportation kept you from medical appointments or from getting medications? No 11/27 In the past 12 months, has l ack of transportation kept you from meetings, work, or from getting things needed for daily living? No 12/23/2024 Housing Stability Vital Sign Answer Kiran e Recorded In the last 12 months, was t here a time when you were not able to pay the mortgage or rent on time? No 12/23/2024 In the past 12 months, how m any times have you moved where you were living? 0 12/23/2024 At any time in the past 12 m [facility], were you homeless or living in a care home (including now)? No 12/23/2024 Sex and Gender Information Value Date Recorded Sex Assigned at Male 10/21/2024 10:47 AM CDT Legal Sex Male 10:46 AM CDT Gender Identity Not on file Sexual Orientation Not on file Last Filed Vital Signs Vital Sign Reading Time Taken Comments Blood Pressure 118/82 12/28/2024 4:03 PM CDT Pulse 91 12/28/2024 4:03 PM CDT Temperature 36.2 C (97.2 F) 12/28/2024 4:03 PM CDT Respiratory Rate 16 12/28/2024 4:03 PM CDT Oxygen Saturation 92% 12/28/2024 4:03 PM CDT Inhaled Oxygen Concentration - - Weight 83.7 kg (184 lb 8.4 oz) 12/28/2024 4:03 P M CDT Height 175.3 cm (5' 9) 12/28/2024 4:03 PM CDT Body Mass Index 27.25 12/28/2024 4:03 PM CDT Plan of Treatment Upcoming Encounters Date Type Department Care Team (Late st Contact Info) Description 08/23/2025 11:40 AM PICKLE PUMPER Telemedicine [facility] Mult[facility]pec[facility] - [facility] [address] [facility] [place] [phone] Gil Garibay MD [address] [facility] [place] [address] [place] [id number] Health Maintenance Due Date Last Done Comments DTaP, Tdap and Td Vaccines (1 - Tdap) 1964 Annual Medicare Wellness Visit 2009 Zoster Vaccines (2 of 3) 07/03/2013 05/08/2013 RSV Immunization or 60+ Years (1 - 1-dose 75+ series) 2019 PHQ-2 (Physician [place]) 07/29/2024 COVID-19 Vaccine ( season) 2025 05/14/2023, 12/15/2021, 06/09/2021, Additional history exists Pneumococcal Vaccine: 50+ Years Completed 01/02/2019, 04/24/2016, 05/14/2014 Meningococcal B Vaccine Aged Out No l onger eligible based on patient's age to complete this topic Meningococcal Vaccine Aged Out No agustin patt eligible based on patient's age to complete this topic RSV Immunizations Under 20 Months Aged Out No longer eligible based on patient's age to complete this topic Goals Goal Patient Goal Type Associated Problems Recent Progress Patient-Stated? Author Family - family caregiver with be involved in care transitions and discharge planning Lifestyle No Claudia Doran RN Medical Devices Implanted Type Area Hospice Fellow Device Identifier Shelf Expiration Date Model / Serial / Lot Patch Maryam. Vasc. Vascu-Guard 0.8cm X 8cm - [id number] Implanted:Qty: 1 on 10/28/2024 by Danie Ngo MD at [facility] Mesh Left: Neck UniYu - BIOSCIENCE 03/24/2026 [id number] / / [id number] Procedures Procedure Name Priority Date/Time Associated Diagnosis Comments XR SPEECH SWALLOW EMILY ONLY Routine 03/25/2025 11:16 AM CDT Chronic cough from Last 3 Months Results * EMILY - XR SPEECH SWALLOW (03/25/2025 11:16 AM CDT) Anatomical Region Laterality Modality NA Fluoroscopy, Rad iographic Imaging 03/25/2025 4:38 PM CDT Impressions 03/25/2025 4:53 PM CDT IMPRESSION: No apparent laryngeal penetration or aspiration. Refer to report of speech pathologist for further discussion and recommendations. Ordered By: GIL GARIBAY Interpreted By: Daniel Olivas, 03/25/2025 4:38 PM Narrative 03/25/2025 4:53 PM CDT [facility] [address] [facility], [place] [address] IMAGING STUDIES: XR SPEECH SWALLOW?EMILY ONLY DATE: 03/25/2025 10:50 AM HISTORY: Chronic cough 79-year-old male. Dyspnea. Persistent cough since November 2024. Coughing fit can last 5 to 10 minutes. Former smoker (quit in 2009). History of CVA/stroke in 2015 with TIA in 2021. History of carotid endarterectomy. History of cervical spine fusion surgery in November 2023. Previous evaluation by speech pathology and October 2024 before and after carotid endarterectomy. COMPARISON: Chest portable 12/28/2024. CTA head and neck and CT cervical spine without contrast 12/23/2024. DISCUSSION: With the patient seated in a wheelchair, video fluoroscopy performed from a lateral projection while the speech pathologist administered varying consistencies. Fluoroscopy time: 48 seconds. Recorded radiation dose: Total ED 3.86 mGy. Total DAP 27.6 dGycm2. Cervical spine: Difficult to visualize on lateral fluoroscopy. Findings on prior CT cervical spine include bilateral posterior fusion and rods extending from C2 through T2 levels, posterior decompression at C3-C7 levels, bulky anterior osteophytes at C3-4, C4-5, and C5-6 levels, and smaller anterior osteophyte at C6-7 level. Puree consistency by spoon: 2 trials. No laryngeal penetration or aspiration. Thin fluid by cup: 2 trials No laryngeal penetration or aspiration. Thin fluid by straw: Multiple consecutive swallows. No laryngeal penetration or aspiration. Solid/Cracker consistency: 2 trials. No laryngeal penetration or aspiration. Procedure Note Daniel Olivas MD - 03/25/2025 [facility] [address] [place], [place] [address] IMAGING STUDIES: XR SPEECH SWALLOW?EMILY ONLYDATE: 03/25/2025 10:50 AM HISTORY: Chronic cough 79-year-old male. Dyspnea. Persistent coughsince November 2024. Coughing fit can last 5 to 10 minutes. Former smoker (quitin 2009). History of CVA/stroke in 2015 with TIA in 2021. History ofcarotid endarterectomy. History of cervical spine fusion surgery in November2023. Previous evaluation by speech pathology and October 2024 before andafter carotid endarterectomy. COMPARISON: Chest portable 12/28/2024. CTA head and neck and CT cervicalspine without contrast 12/23/2024. DISCUSSION: With the patient seated in a wheelchair, video fluoroscopy performed froma lateral projection while the speech pathologist administered varyingconsistencies. Fluoroscopy time: 48 seconds. Recorded radiation dose: Total ED 3.86 mGy.Total DAP 27.6 dGycm2. Cervical spine: Difficult to visualize on lateral fluoroscopy. Findings onprior CT cervical spine include bilateral posterior fusion and rodsextending from C2 through T2 levels, posterior decompression at C3-L2polscb, bulky anterior osteophytes at C3-4, C4-5, and C5-6 levels, andsmaller anterior osteophyte at C6-7 level. Puree consistency by spoon: 2 trials. No laryngeal penetration oraspiration. Thin fluid by cup: 2 trials No laryngeal penetration or aspiration. Thin fluid by straw: Multiple consecutive swallows. No laryngealpenetration or aspiration. Solid/Cracker consistency: 2 trials. No laryngeal penetration oraspiration. IMPRESSION: No apparent laryngeal penetration or aspiration. Refer to report of speechpathologist for further discussion and recommendations. Ordered By: GIL GARIBAY Interpreted By: Daniel Olivas, 03/25/2025 4:38 PM Gil Garibay MD FLUOROSCOPY Final Result from Last 3 Months Insurance [employer] Advance Directives Documents on File Type Date Recorded Patient Anesthesia Associate Expl anation Advance Directives and Livin g Will 12/10/2024 3:21 PM * Full Code (Latest Code Status on File) Date Activated Date Inactivated Comments 12/23/2024 6:03 PM 12/24/2024 3:38 PM * Full Code Date Activated Date Inactivated Comments 10/21/2024 4:06 PM 11/05/2024 3:49 PM Care Teams Data Developer Relationship Specialty Start Date End Date Erlin Singh MD [address] [place] [address] PCP - General INTERNAL MEDICINE 10/21/24 Lorie Randall MD [address] [address] Physician NEUROSURGERY 11/04/24 11/04/25
--- OUTSIDE RECORDS SUMMARY | 2025-04-12 17:23 | XMS_ITS | Encounter Summary ---
Author Organization [facility] Healthcare Address [address] [place] [address] Care Team Providers Care Roll On Man Name Role Phone Princess Dixon RN Unavailable Sabine Melvin Marley MD Unavailable Virginie Hansen MD Unavailable Xavier Mayer MD Unavailable Xavier Joel MD Unavailable Genaro Galan MD Unavailable Erlin Singh MD Primary Care Provider [phone] Ceci Guardado RN Unavailable Ceci RecioW Unavailable Anette Newby NP Unavailable [phone] Corrina BrushW Unavailable Unavaila ble Encounter Details Date Type Department Care Team (Late st Contact Info) Description 07/17/2024 Telephone [facility] [address] [place] [address] Anette Newby, ENVIRONMENT FRIENDLY LANDSCAPE DESIGNER [address] [facility] [address] [place] [address] Social History Tobacco Use Types Packs/Day Years Used Date Smoking Tobacco: Former Cigarettes Q uit: 1961 Smokeless Tobacco: Never Alcohol Use Standard Drinks/Week [...] materials from doctor or pharmacy Often 05/01/2023 [facility] Utilities Answer Date Recorded In the past 12 months has e electric, gas, oil, or water company threatened to shut off services in your home? No 06/30/2024 Social Connection and Isolation Panel Answer Date Recorded In a typical week, how many times do you talk on the phone with family, friends, or neighbors? Once a week 06/30/2024 How often do you get together with friends or re latives? Never 06/30/2024 How often do you attend muslim or confucianism serv ices? Never 06/30/2024 Do you belong to any clubs o r organizations such as muslim groups, unions, fraternal or athletic groups, or school groups? No 06/30/2024 How often do you attend meet ings of the clubs or organizations you belong to? Never 06/30/2024 Are you , , di vorced, , never , or living with a partner? 06/30/2024 AUDIT-C Answer Date Recorded Q1: How often do you have a drink containing alcohol? Never 06/30/2024 Q2: How many drinks containi ng alcohol do you have on a typical day when you are drinking? Patient does not drink Q3: How often do you have si x or more drinks on one occasion? Never 06/30/2024 Overall Financial Resource Strain (CARDIA) Answe r Date Recorded How hard is it for you to pa y for the very basics like food, housing, medical care, and heating? Not very hard 06/30/2024 PHQ-2 Answer Date Recorded PHQ-2 Total Score (If total score is 3 or more points, staff should administer the PHQ-9) 2 07/09/2024 Hunger Vital Sign Answer Date Recorded Within the past 12 months, y ou worried that your food would run out before you got the money to buy more. Never true 06/30/20 24 Within the past 12 months, t he food you bought just didn't last and you didn't have money to get more. Never true 06/30/2024 PRAPARE - Transportation Answer Date Re corded In the past 12 months, has l ack of transportation kept you from medical appointments or from getting medications? No 09/2023 In the past 12 months, has l ack of transportation kept you from meetings, work, or from getting things needed for daily living? No 06/30/2024 Housing Stability Vital Sign Answer Kiran e [...] place to sleep or slept in a detention (including now)? No 02/13/2023 Housing Stability Vital Sign Answer Kiran e Recorded In the last 12 months, was t here a time when you were not able to pay the mortgage or rent on time? No 06/30/2024 In the past 12 months, how m any times have you moved where you were living? 0 06/30/2024 At any time in the past 12 m [facility], were you homeless or living in a detention (including now)? No 06/30/2024 Personal Safety Answer Date Recorded Have you ever been in or are you currently in a harmful physical or emotional relationship or is someone making you feel afraid or unsafe? Denies 06/11/2024 Education Answer Date Recorded What is the highest level of school you have completed or the highest degree you have received? 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 Gender Identity Not on file Sexual Orientation Straight 01/28/2019 4: 07 PM CDT Occupation Industry Job Start Date Job End Date retired Not on file Not on file Not on file documented as of this encounter Plan of Treatment Not on file documented as of this encounter Visit Diagnoses Not on filedocumented in this encounter Care Teams Roll On Man Relationship Specialty Start Date End Date Erlin Singh MD [address] [place] [address] PCP - General Family Medicine 01/17/22 Princess Dixon, RN Registered Nurse 09/03/17 Melvin Hernández MD [address] [facility] [address] [facility] [address] [place] [address] Consulting Physician Cardiology 05/23/18 Virginie Hansen MD [address] [place] [address] Consulting Physician Neurology 06/24/18 Xavier Mayer MD [address] [place] [address] Consulting Physician Neurology 06/03/19 Xavier Joel MD [address] [place] [address] Consulting Physician Pulmonary Disease 01/11/20 Genaro Galan MD [address] [facility] [address] [place] [address] Consulting Physician Pain Management 07/18/21 Ceci Guardado RN [address] [place] [address] [address] [place] [address] Metal Numerical Tool Programmer 06/30/24 Ceci Recio, ADMISSIONS CLERK [address] [place] [address] [place] [address] Spinner Continuous 07/02/24 08/12/24 Anette Newby NP [address] [facility] [address] [place] [address] Nurse Practitioner Hospice and Palliative Medicine 07/20/24 Corrina Brush, TROY Spinner Continuous 03/22/25 documented as of this encounter
--- OUTSIDE RECORDS SUMMARY | 2025-04-12 17:23 | XMS_ITS | Encounter Summary ---
Author Organization [facility] Address [address] [place] [address] Care Team Providers Care Tile Molder Hand Name Role Phone Princess Dixon RN Unavailable Sabine Melvin Marley MD Unavailable [phone] Virginie Hansen MD Unavailable [phone] Xavier Mayer MD Unavailable Xavier Joel MD Unavailable [phone] Genaro Galan MD Unavailable Erlin Singh MD Primary Care Provider [phone] Ceci Guardado RN Unavailable [phone] Anette Newby NP Unavailable [phone] Corrina Brush LCSW Unavailable Unavaila ble Reason for Visit * Reason Onset Date Comments Medical Question/Miscellaneous 03/26/2025 Encounter Details Date Type Department Care Team (Late st Contact Info) Description 03/26/2025 Telephone [facility] [address] [place] [address] Erlin Singh MD [address] [place] [address] [place] [address] Medical Question/Miscellaneous Social History Tobacco Use Types Packs/Day Years Used Date Smoking Tobacco: Former Cigarettes Q uit: 1960 Smokeless Tobacco: Never Alcohol Use Standard Drinks/Week [...] week 11/25/2024 How often do you attend shinto or temple serv ices? Never 11/25/2024 Do you belong to any clubs o r organizations such as shinto groups, unions, fraternal or athletic groups, or [...] place to sleep or slept in a senior care (including now)? No 02/13/2023 PHQ-9 Answer Date [...] were you homeless or living in a senior care (including now)? No 11/25/2024 Social Connection and [...] any clubs o r organizations such as shinto groups, unions, fraternal or athletic groups, or [...] care, and heating? Not very hard 03/23/2025 [facility] Occupat ional Health - Occupational Stress [...] were you homeless or living in a senior care (including now)? 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 They were done at [facility] and I told her I didn't see results in the chart so far. She will check back on . fax: [phone] Does message need to be routed? No documented in this encounter Plan of Treatment Not on file documented as of this encounter Goals Goal Patient Goal Type Associated Problems Recent Progress Patient-Stated? Author ACO SW Goal - Patient can identify and utilize needed community resources ACO Care Management No Corrina Brush LCSW Note: Problem: Need for Community Resources Interventions: - Provide patient/family with a list of appropriate resources for their specific need. - Help to coordinate resources. - Follow up to ensure patient/family has connected with the appropriate resources / personnel. documented as of this encounter Visit Diagnoses Not on filedocumented in this encounter Care Teams Tile Molder Hand Relationship Specialty Start Date End Date Erlin Singh MD [address] [place] [address] PCP - General Family Medicine 01/17/22 Princess Dixon, RN Registered Nurse 09/03/17 Melvin Hernández MD [address] [facility] [place] [address] [facility] [place] [address] [place] [address] Consulting Physician Cardiology 05/23/18 Virginie Hansen MD [address] [place] [address] Consulting Physician Neurology 06/24/18 Xavier Mayer MD [address] [place] [address] Consulting Physician Neurology 06/03/19 Xavier Joel MD [address] [place] [address] Consulting Physician Pulmonary Disease 01/11/20 Genaro Galan MD [address] [facility] [address] [place] [address] Consulting Physician Pain Management 07/18/21 Ceci Guardado, RN [address] [place] [address] [address] [place] [address] Crop Specialist 06/30/24 Anette Newby NP 1 [facility] [address] [place] [address] Nurse Practitioner Hospice and Palliative Medicine 07/20/24 Corrina Brush LCSW Coin Machine Service Repairer 03/22/25 documented as of this encounter
--- OUTSIDE RECORDS SUMMARY | 2025-04-12 17:23 | XMS_ITS | Encounter Summary ---
Author Organization [facility] Address [address] [place] [address] Care Team Providers Care Veneer Layer Name Role Phone Erlin Singh MD Primary Care Provider [phone] Lorie Randall MD Unavailable [phone] Reason for Referral * Surgical (Routine) - New Request Specialty Diagnoses / Procedures Referred By Contac t Referred To Contact Diagnoses Carotid stenosis, left Procedures Case request operating room: ENDARTERECTOMY CAROTID (LEFT SIDE OF NECK) Danie Ngo MD [facility]. [place] [address] [place] [address] Phone: tel: fax: Referral ID Status Reason Start Date Expiration Date V isits Requested Visits Authorized [id number] New Request 10/26/2024 10/26/2025 1 1 Encounter Details Date Type Department Care Team (Late st Contact Info) Description 10/26/2024 Prep for Procedure [facility] [address] [place] [address] Danie Ngo MD [facility]. [facility] [address] [place] [address] Social History Tobacco Use Types Packs/Day Years Used Date Smoking Tobacco: Never Smokeless Tobacco: Never Alcohol Use Standard Drinks/Week Comments Not Currently 0 (1 standard drink = 0.6 oz pur e alcohol) [facility] Utilities Answer Date Recorded In the past 12 months has th e electric, gas, oil, or water company threatened to shut off services in your home? No 10/22/2024 Humiliation, Afraid, Rape, and Kick questionnair e Answer Date Recorded Within the last year, have y ou been afraid of your partner or ex-partner? No 10/22/2024 Within the last year, have y ou been humiliated or emotionally abused in other ways by your partner or ex-partner? No Within the last year, have y ou been kicked, hit, slapped, or otherwise physically hurt by your partner or ex-partner? No 10/22/2024 Within the last year, have y ou been raped or forced to have any kind of sexual activity by your partner or ex-partner? No 10/22/2024 Overall Financial Resource Strain (CARDIA) Answe r Date Recorded How hard is it for you to pa y for the very basics like food, housing, medical care, and heating? Not hard at all 10/22/2024 Hunger Vital Sign Answer Date Recorded Within the past 12 months, y ou worried that your food would run out before you got the money to buy more. Never true 10/23/19 25 Within the past 12 months, t he food you bought just didn't last and you didn't have money to get more. Never true 10/22/2024 PRAPARE - Transportation Answer Date Re corded In the past 12 months, has l ack of transportation kept you from medical appointments or from getting medications? No 09/27 In the past 12 months, has l ack of transportation kept you from meetings, work, or from getting things needed for daily living? No 10/22/2024 Housing Stability Vital Sign Answer Kiran e Recorded In the last 12 months, was t here a time when you were not able to pay the mortgage or rent on time? No 10/22/2024 In the past 12 months, how m any times have you moved where you were living? 0 10/22/2024 At [facility] time in the [facility] were you [facility] or living in a [facility] (including now)? No 10/22/2024 Sex and Gender Information Value Date Recorded Sex Assigned at Male 10/21/2024 10:47 AM CDT Legal Sex Male 10:46 AM CDT Gender Identity Not on file Sexual Orientation Not on file documented as of this encounter Functional Status * Are you deaf or do you have serious difficulty hearing Answer Date of Assessment Author Status No 10/21/2024 4:47 PM CDT Reyna Jones RN Active * Are you blind or do you have serious difficulty seeing, even when wearing glasses? Answer Date of Assessment Author Status No 10/21/2024 4:47 PM CDT Reyna Jones RN Active * Do you have serious difficulty walking or climbing stairs? Answer Date of Assessment Author Status Yes 10/21/2024 4:47 PM Reyna Porter RN Active * Do you have difficulty dressing or bathing? Answer Date of Assessment Author Status Yes 10/21/2024 4:47 PM Reyna Porter RN Active * Because of a physical, mental, or emotional condition, do you have difficulty doing errands alone such as visiting a doctor's office or shopping? Answer Date of Assessment Author Status Yes 10/21/2024 4:47 PM CDT Reyna Jones RN Active documented as of this encounter Mental Status * Because of a physical, mental, or emotional condition, do you have serious difficulty concentrating, remembering, or making decisions? Answer Entry Date Author Status Yes 10/21/2024 4:47 PM Reyna Porter RN Active documented in this encounter Plan of Treatment Upcoming Encounters Date Type Department Care Team (Late st Contact Info) Description 08/23/2025 11:40 AM BED MANAGER Telemedicine [facility] - [facility] [address] [facility] [place] [phone] Gil Kelley MD [address] [facility] [place] [address] [place] [address] Scheduled Orders Name Type Priority Associated Diagnoses Order Schedule Case request operating room: ENDARTERECTOMY CAROTID (LEFT SIDE OF NECK) Case Request Routine Carotid stenosis, left Once for 1 Occurrences starting 10/26/2024 until 10/26/2024 documented as of this encounter Visit Diagnoses Diagnosis Carotid stenosis, left- Primary Occlusion and stenosis of carotid artery without mention of cerebral infarction documented in this encounter Care Teams Veneer Layer Relationship Specialty Start Date End Date Erlin Singh MD [address] [facility] [address] PCP - General INTERNAL MEDICINE 10/21/24 Lorie Randall MD [address] [address] Physician NEUROSURGERY 11/04/24 11/04/25 documented as of this encounter
--- OUTSIDE RECORDS SUMMARY | 2025-04-12 17:23 | XMS_ITS | Encounter Summary ---
Author Organization [facility] Address [address] [facility] [place] [address] Care Team Providers Care Blackjack Supervisor Name Role Phone Kassandra Torres APRN-EXPLOSIVE ORDNANCE DISPOSAL TECHNICIAN Primary Care Provid er Unavailable Erlin Singh MD Primary Care Provider [phone] Reason for Visit * Reason Onset Date Comments Question 07/05/2023 Encounter Details Date Type Department Care Team (Late st Contact Info) Description 07/05/2023 Telephone [facility] - Ophthalmology [address] [place] [phone] Brent Garcia MD [address] [place] [address] [place] [address] Question Social History Tobacco Use Types Packs/Day Years Used Date Smoking Tobacco: Former Cigarettes Q uit: 2011 Smokeless Tobacco: Never Alcohol Use Standard Drinks/Week Comments Yes 0 (1 standard drink = 0.6 oz pur e alcohol) rare Sex and Gender Information Value Date Recorded Sex Assigned at Not on file Legal Sex Male 3:31 PM CDT Gender Identity Not on file Sexual Orientation Not on file documented as of this encounter Functional Status * Is person deaf or have serious hearing difficulty? Answer Date of Assessment Author No 11/07/2018 1:06 AM PELONT Hayden Guzman RN * Is person blind or have serious difficulty seeing? Answer Date of Assessment Author No 11/07/2018 1:06 AM CDT Megan, Quintrice A, RN * Does person have serious difficulty walking/climbing stairs? Answer Date of Assessment Author No 11/07/2018 1:06 AM Hayden Rainey RN * Does person have difficulty dressing/bathing? Answer Date of Assessment Author No 11/07/2018 1:06 AM Haydne Rainey RN * Does person have difficulty doing errands alone? Answer Date of Assessment Author Yes 11/07/2018 1:06 AM Hayden Rainey RN documented as of this encounter Mental Status * Does person have difficulty concentrating/remembering/making decisions? Answer Entry Date Author Yes 11/07/2018 1:06 AM Hayden Rainey RN documented in this encounter Miscellaneous Notes * Telephone Encounter - Beverly Lopez - 07/05/2023 10:08 AM CST Pt son called again and stopped by to try to get his father's surgery scheduled. He has been waiting over a week for a response. CB# [phone] HERS ASSISTANT documented in this encounter Plan of Treatment Not on file documented as of this encounter Visit Diagnoses Not on filedocumented in this encounter Care Teams Blackjack Supervisor Relationship Specialty Start Date End Date Kassandra Torres APRN-EXPLOSIVE ORDNANCE DISPOSAL TECHNICIAN PCP - General Nurse Practitioner Family 10/06/18 08/06/23 [place] [address] PCP - General Internal Medicine 08/07/23 documented as of this encounter
--- OUTSIDE RECORDS SUMMARY | 2025-04-12 17:23 | XMS_ITS | Encounter Summary ---
Author Organization [facility] Healthcare Address [address] [place] [address] Care Team Providers Care Wind Farm Operations Manager Name Role Phone Princess Dixon RN Unavailable Sabine Melvin Marley MD Unavailable [phone] Virginie Hansen MD Unavailable [phone] Xavier Mayer MD Unavailable Xavier Joel MD Unavailable [phone] Genaro Galan MD Unavailable Erlin Singh MD Primary Care Provider [phone] Ceci Guardado RN Unavailable [phone] Ceci RecioW Unavailable [phone] Anette Newby NP Unavailable [phone] Corrina Brush CLOTH BIN PACKER Unavailable Unavaila ble Reason for Visit * Auth/Cert (Routine) Specialty Diagnoses / Procedures Referred By Waldemar rodriguez Referred To Contact Diagnoses Dysphagia, unspecified type Dysphagia, unspecified type [R13.10] Procedures SC ESOPHAGOGASTRODUODENOSCOPY TRANSORAL DIAGNOSTIC ESOPHAGOGASTRODUODENOSCOPY Referral ID Status Reason Start Date Expiration Date Visits Re quested Visits Authorized [id number] 1 1 Encounter Details Date Type Department Care Team (Late st Contact Info) Description 07/23/2024 Hospital Encounter [facility] [address] [place] [address] Keila Burgess MD [address] [place] [address] [address] [place] [address] Social History Tobacco Use Types Packs/Day Years [...] week 11/25/2024 How often do you attend islam or congregation serv ices? Never 11/25/2024 Do you belong to any clubs o r organizations such as islam groups, unions, fraternal or athletic groups, or [...] place to sleep or slept in a care home (including now)? No 02/13/2023 PHQ-9 Answer Date [...] any time in the past 12 m [facility], were you homeless or living in a care home (including now)? No 11/25/2024 Social Connection and Isolation Panel Answer Date Recorded In a typical week, how many times do you talk on the phone with family, friends, or neighbors? Once a week 03/23/2025 How often do you get togethe r with friends or relatives? More than three times a week 03/23/2025 How often do you attend chur ch or congregation services? Never 03/23/2025 Do you belong to any clubs o r organizations such as islam groups, unions, fraternal or athletic groups, or [...] care, and heating? Not very hard 03/23/2025 [facility] - Occupational Stress Questionnaire Answer Date Recorded [...] any time in the past 12 m [facility], were you homeless or living in a care home (including now)? 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 Never 10/02/2024 11:02 AM AUTOMOTIVE SALES ASSOCIATE Leeann Daniels MA Q2: How many drinks containing alcohol do you have on a typical day when you are drinking? Patient does not drink 06/30/2024 2:26 PM Juliana Greenberg RN Q3: How often do you have six or more drinks on one occasion? Never 06/30/2024 2:26 PM Juliana Greenberg RN documented as of this encounter Plan of Treatment Not on file documented as of this encounter Goals Goal Patient Goal Type Associated Problems Recent Progress Patient-Stated? Author ACO SW Goal - Patient can identify and utilize needed community resources ACO Care Management Corrina Green, TROY Note: Problem: Need for Community Resources Interventions: - Provide patient/family with a list of appropriate resources for their specific need. - Help to coordinate resources. - Follow up to ensure patient/family has connected with the appropriate resources / personnel. documented as of this encounter Visit Diagnoses Not on filedocumented in this encounter Admitting Diagnoses Diagnosis Dysphagia documented in this encounter Care Teams Wind Farm Operations Manager Relationship Specialty Start Date End Date Erlin Singh MD [address] [place] [address] PCP - General Family Medicine 01/17/22 Princess Dixon, RN Registered Nurse 09/03/17 Melvin Hernández MD [address] [place] [address], [place] [address] [place] [address] Consulting Physician Cardiology 05/23/18 Virginie Hansen MD [address] [place] [address] Consulting Physician Neurology 06/24/18 Xavier Mayer MD [address] [place] [address] Consulting Physician Neurology 06/03/19 Xavier Joel MD [address] [place] [address] Consulting Physician Pulmonary Disease 01/11/20 Genaro Galan MD [address] [facility] [address] [place] [address] Consulting Physician Pain Management 07/18/21 Ceci Guardado, RN [address] [place] [address] [address] [place] [address] Women'S Studies Lecturer 06/30/24 Ceci Recio, CLOTH BIN PACKER [address] [place] [address] [place] [address] Manager Contract 07/02/24 08/12/24 Anette Newby, [place] [address] [facility] [address] [place] [address] Nurse Practitioner Hospice and Palliative Medicine 07/20/24 Corrina Brush LCSW Manager Contract 03/22/25 documented as of this encounter
--- OUTSIDE RECORDS SUMMARY | 2025-04-12 17:23 | XMS_ITS | Encounter Summary ---
Author Organization [facility] Address [address] [place] [address] Phone Care Team Providers Care Physician Name Role Phone Unavailable Primary Care Provider Unavailabl e Encounter Details Date Type Department Care Team (Late st Contact Info) Description 02/26/2023 Nursing Facility [facility] [address] [place] [address] Abundio Galvez PAC [address] [place] [address] Social History Tobacco Use Types Packs/Day Years Used Date Smoking Tobacco: Never Assessed Sex and Gender Information Value Date Recorded Sex Assigned at Not on file Legal Sex Male 9:15 PM CDT Gender Identity Not on file Sexual Orientation Not on file documented as of this encounter Progress Notes * Abundio Galvze PAC - 02/26/2023 2:09 PM CDT [facility] DISCHARGE SUMMARY Name: Azeem Song Age: 77 y.o. : 1945 Attending Physician: No att. providers found Admission Date/Time: 02/21/2023 Expected Discharge Date: 02/26/2023 Primary Care Physician: No primary care provider on file. Discharging Provider: ODETTE Wagoner INSTRUCTIONS FOR PHYSICIANS ON FOLLOW UP AFTER DISCHARGE: Follow-up with PCP in 1 week. Will need to recheck CBC to make sure leukocytosis has resolved. Needs to complete his p.o. doxycycline course. Discharge Instructions: Discharge Condition: improved Disposition: Home Diet: Regular Diet Activity: activity as tolerated Discharge Diagnoses: Generalized weakness and deconditioning, left lower extremity cellulitis, aspiration pneumonitis with possible pneumonia, previous CVA with subsequent slight expressive aphasia, coronary artery disease status post stenting, hypertension, diabetes mellitus type 2, dementia, depression, anxiety Admitting Diagnoses: Generalized weakness and deconditioning, left lower extremity cellulitis, aspiration pneumonitis with possible pneumonia, previous CVA with subsequent slight expressive aphasia, coronary artery disease status post stenting, hypertension, diabetes mellitus type 2, dementia, depression, anxiety SKILLED CARE COURSE: Azeem [facility]. Prior to coming to rehabilitation facility patient was hospitalized at [facility] for generalized weakness, he was found to have sepsis secondary to cellulitis of left lower extremity and also aspiration pneumonitis with possible pneumonia. While at the rehabilitation facility, the patient received penitentiary care and physical therapy rehabilitation. The patient has done well with their rehabilitation and has regained enough strength and ambulationthat it is felt that he can safely be discharged. Patient's stay in the rehabilitation facility was very short. Admitted at the end last week. Today is actually the first time that I am seeing him and he will be discharging later today. This discharge is happening early per the request of the patient and his son. He does live with his son who is picking him up today. He is currently lying comfortably in bed. Says he feels ???marvelous?? . He denies any pain at thistime. He is orientated x3 and moving all his extremities well so even though this is a very expected discharge I feel that is reasonable. I reviewed his hospitalization records and he understands that he will need to get seen by his PCP ideally in the next 1 week and needs to have CBC drawn and needs to complete his course of doxycycline. I do not see any obvious signs of lower extremity cellulitis at this time and clinically the patient looks well. Exam Day of Discharge: Vital Signs: Recent vital signs were reviewed in the electronic medical records at nursing facility and are unremarkable. General: Well developed, well nourished, in no distress Skin: Normal appearance, normal turgor, no rashes HEENT: Normocephalic, atraumatic, no flaring Eyes: nonicteric, intact extra occular movement, PERRL Neck: normal, supple, no lymphadenopathy Heart: regular rate and rhythm, S1, S2 normal, no murmur, click, rub or gallop Lungs: clear to ausculation, normal respirations with no accessory muscle use, normal rate Abdominal: soft, non-tender; bowel sounds normal; no masses, no organomegaly Extremities: no deformities, joint mobility appears intact, no clubbing Neuro: Non-focal, CN intact, sensory and motor intact Psychological: alert and oriented X3, appropriate mood and affect, Intact judgement and memory Lab / Imaging Review: Lab Results: None Imaging: None DISCHARGE PLAN: Patient will be going back home today her patient and family request, declined home health or any DME. Understands to continue all current medications as directed and follow up with PCP in 1-2 weeks. I have spent time coordinating care for this penitentiary facility discharge: Greater than 30 minutes spent in coordinating care This note was dictated using IntroFly fluency dictation system and there may be errors in mold cleaning and storage supervisor. Despite proof reading the note, there may be mistakes and I apologize for those. Signed: ODETTE Wagoner, 02/26/2023, 2:10 PM CDT documented in this encounter Plan of Treatment Not on file documented as of this encounter Visit Diagnoses Not on filedocumented in this encounter
--- OUTSIDE RECORDS SUMMARY | 2025-04-12 17:23 | XMS_ITS | Encounter Summary ---
Author Organization [facility] Address [address] [place] [address] Care Team Providers Care Mold Builder Name Role Phone Jessa Rodríguez AUTOMOTIVE STARTER REPAIRER Primary Care Provider + [phone] Princess Dixon RN Unavailable Sabine vailable Blake Almanza AUTOMOTIVE STARTER REPAIRER Primary Care Provi lelo Kassandra Torres AUTOMOTIVE STARTER REPAIRER Primary Care Provider [phone] Blake Almanza AUTOMOTIVE STARTER REPAIRER Primary Care Provi lelo Melvin Hernández MD Unavailable [phone] Kassandra Torres AUTOMOTIVE STARTER REPAIRER Primary Care Provider [phone] Virginie Hansen MD Unavailable [phone] Xavier Mayer MD Unavailable [phone] Xavier Joel MD Unavailable [phone] Erlin Singh MD Primary Care Provider [phone] Genaro Galan MD Unavailable Kassandra Torres AUTOMOTIVE STARTER REPAIRER Primary Care Provider [phone] Erlin Singh MD Primary Care Provider [phone] Gabriela Turner MD Primary Care Provider + [phone] Gabriela Turner MD Primary Care Provider [phone] Erlin Singh MD Primary Care Provider [phone] Kia Neff RN Unavailable [phone] Brittany Oseguera RN Unavailable Ceci Guardado RN Unavailable [phone] Ceci Recio SENIOR ADVISOR Unavailable [phone] Anette Newby NP Unavailable [phone] Corrina Brush SENIOR ADVISOR Unavailable Unavaila ble Encounter Details Date Type Department Care Team (Late st Contact Info) Description 07/03/2017 Orders Only [facility] Diagnostic Imaging [address] [place], [place] [id number] Ameena Rodriguez, RT Social History Tobacco Use Types Packs/Day Years Used Date Smoking Tobacco: Smoker, Current Status Unknown Alcohol Use Standard Drinks/Week Comments Yes 0 (1 standard drink = 0.6 oz pur e alcohol) Sex and Gender Information Value Date Recorded Sex Assigned at Not on file Legal Sex Male 12:47 PM COMMISSARY CLERK Gender Identity Not on file Sexual Orientation Straight 01/28/2019 4: 07 PM CDT documented as of this encounter Plan of Treatment Not on file documented as of this encounter Visit Diagnoses Not on filedocumented in this encounter Additional Health Concerns Infection Onset Date Last Indicated Resolved Time COVID: Suspected 02/12/2023 02/12/2023 02/12/2023 7:13 PM CDT MRSA Comment:..Contact Precautions (gown and gloves) AMY Banks 03/01/23 02/13/2023 02/13/2023 08/12/2023 3:[address] COVID: Suspected 03/20/2023 03/20/2023 03/20/2023 6:44 AM CDT COVID: Suspected 09/02/2023 09/02/2023 09/02/2023 6:41 PM COMMISSARY CLERK COVID: Suspected 12/28/2023 12/29/2023 12/29/2023 1:55 AM CDT COVID: Suspected 12/29/2023 12/29/2023 12/29/2023 7:01 AM CDT COVID: Suspected 03/13/2024 03/13/2024 03/13/2024 12:01 PM CDT COVID19 03/13/2024 03/13/2024 03/26/2024 3:07 AM CDT Ring Surveillance 03/14/2024 03/14/2024 03/21/2024 3:05 AM CDT COVID: Recovered Comment:Added based on recent COVID infection. 03/26/2024 03/26/2024 06/16/2024 3:[address] C. difficile suspected Comment:No diarrhea for sample to be submitted. No recent Abx; Likely does NOT have C Diff; 06/13/2024 06/13/2024 06/15/2024 12:17 P M COMMISSARY CLERK documented as of this encounter Care Teams Mold Builder Relationship Specialty Start Date End Date Jessa Rodríguez AUTOMOTIVE STARTER REPAIRER [id number] [address] PCP - General 10/26/16 03/13/18 Blake Almanza NP PCP - General 03/14/18 04/21/18 Kassandra Torres NP PCP - General Family Medicine 04/22/18 04/22/18 Blake Almanza NP PCP - General 04/23/18 05/22/18 Kassandra Torres NP PCP - General Family Medicine 05/23/18 06/05/21 Erlin Singh MD [address] [place] [address] PCP - General Family Medicine 06/06/21 07/24/21 Kassandra Torres AUTOMOTIVE STARTER REPAIRER PCP - General 07/25/21 09/17/21 Erlin Singh MD [address] [place] [address] PCP - General Family Medicine 09/18/21 12/25/21 [place] [address] [facility] [address] [place], [place] [id number] PCP - General Family Medicine 12/26/21 12/26/21 [place] [address] [facility] [address] [place] [address] PCP - General Family Medicine 01/02/22 01/16/22 Erlin Singh MD [address] [place] [address] PCP - General Family Medicine 01/17/22 Princess Dixon, RN Registered Nurse 09/03/17 Melvin Hernández MD [address] [place] [address] [place] [address] [place] [address] Consulting Physician Cardiology 05/23/18 Virginie Hansen MD [address] [place] [address] Consulting Physician Neurology 06/24/18 Xavier Mayer MD [address] [place] [address] Consulting Physician Neurology 06/03/19 Xavier Joel MD [address] [place] [address] Consulting Physician Pulmonary Disease 01/11/20 Genaro Galan MD [address] [facility] [address] [place] [address] Consulting Physician Pain Management 07/18/21 Kia Neff RN [address] [place] [address] [facility] [address] [place] [address] Particle Board Supervisor 02/27/23 04/04/23 Brittany Oseguera RN [address] [place] [address] [facility] [address] [place] [address] Particle Board Supervisor 03/17/24 04/16/24 Ceci Guardado RN [address] [place] [address] [address] [place] [address] Particle Board Supervisor 06/30/24 Ceci Recio LCSW [address] [place], [place] [address] [place] [address] Leather Belt Maker 07/02/24 08/12/24 Anette Newby NP [address] [place] [address] [address] Nurse Practitioner Hospice and Palliative Medicine 07/20/24 Corrina Brush LCSW Leather Belt Maker 03/22/25 documented as of this encounter
== END 2025-04-12 15:00 | disposition home or self-care (01) ==
PROVIDERS: Emergency Provider Nurse Practitioner Family; PCP Family Medicine
DX: M79.675 Pain in left toe(s) (principal); R05.9 Cough, unspecified; Z87.891 Personal history of nicotine dependence; E11.9 Type 2 diabetes mellitus without complications; I25.10 Atherosclerotic heart disease of native coronary artery without angina pectoris; I10 Essential (primary) hypertension; F03.90 Unspecified dementia, unspecified severity, without behavioral disturbance, psychotic disturbance, mood disturbance, and anxiety; M19.90 Unspecified osteoarthritis, unspecified site; I25.2 Old myocardial infarction; Z95.5 Presence of coronary angioplasty implant and graft; F32.9 Major depressive disorder, single episode, unspecified
CPT/HCPCS: 99212; G0463